=== PATIENT | male | born 1970 | race Caucasian/White ===

== ENCOUNTER 2024-09-03 09:27 | Inpatient (IN) | payer OTHER ==
[~2024-09-03] VITALS: Ht 193 cm; Wt 97.0 kg
[2024-09-03] VITALS (18 sets, daily range): BP systolic 123–152; BP diastolic 77–93
[~2024-09-03 09:27] MED LIST: GLIPIZIDE XL10 MG PO; GLIPIZIDE5 M2 PO; METFORMIN HCL1000 MG PO; METFORMIN500 M2 PO
--- NOTE | 2024-09-03 09:28 | NUR ---
PT COMPLAINT OF NON HEALING WOUND TO THE R FOOT FOR SEVERAL YEARS, SENT BY HIS WOUND DOCTOR FOR SURGERY CONSULT.
[2024-09-03] MEDS ORDERED: PIPERACILLIN Sodium-Tazobactam 3.375 GM in SODIUM CHLORIDE 0.9% 100 ML IV STA (10:07)
[2024-09-03] MEDS ORDERED: VANCOMYCIN HCL 1 GM in SODIUM CHLORIDE 0.9% 250 ML IV STA (10:07)
[2024-09-03] MEDS ORDERED: SODIUM CHLORIDE 0.9% 1,000 ML IV ONE (10:10)
--- NOTE | 2024-09-03 10:30 | NUR ---
REPORT RECEIVED FROM VIPIN.
[2024-09-03 10:32] LABS: BASO% 0.6 % (0-3); EOS% 3.2 % (0-8); HEMATOCRIT 36.4 % (39.0-50.0); HEMOGLOBIN 11.6 g/dl (14.0-18.0); IMMATURE GRANULOCYTES 0.8 % (0.0-5.0); LYMPH% 30.7 % (15-41); MEAN CELL VOLUME 95.8 fL CALC (80.0-100.0); MEAN CORPUSCULAR HGB 30.5 pG CALC (26.0-32.0); MEAN CORPUSCULAR HGB CONC 31.9 g/dL CAL (32.0-36.0); NEUT# 2.68 thou/uL (1.82-7.42); NEUT% 56.7 % (42-76); RED BLOOD COUNT 3.8 mill/uL (4.70-6.10); RED CELL DISTRI WIDTH 15.3 % (11.5-15.5)
--- NOTE | 2024-09-03 10:53 | NUR ---
FOLLOWED UP WITH LAB TO ENSURE CULTURES COLLECTED.
[2024-09-03 10:57] LABS: ALBUMIN 3.1 g/dL (3.2-5.0); BILIRUBIN, TOTAL 1.2 mg/dL (0.2-1.3); CREATININE 0.5 mg/dL (0.7-1.3); POTASSIUM 4.3 mmol/l (3.5-5.1); TOTAL PROTEIN 6.6 g/dL (6.3-8.2)
--- NOTE | 2024-09-03 12:01 | NUR ---
PATIENT LYING IN BED WITH NO ACUTE DISTRESS NOTED AT THIS TIME.
[2024-09-03] MEDS ORDERED: MAGNESIUM HYDROXIDE 30 ML UDC PO PRN (12:20)
[2024-09-03] MEDS ORDERED: DEXTROSE 250 ML IV PRN ×2 (12:20→12:25)
[2024-09-03] MEDS ORDERED: ACETAMINOPHEN 325 MG/TAB PO PRN (12:20)
--- NOTE | 2024-09-03 12:47 | NUR ---
REPORT GIVEN TO STEVE FALL.
--- NOTE | 2024-09-03 13:00 | NUR ---
PT ARRIVED TO THE UNIT VIA WC FROM ER, PT IS A&O X3, PT AMBULATED FROM THE WC TO THE BED SIDE SCALE THEN TO THE BED WITH A SLOW STEADY GAIT, PUPILS PERRL, NORMAL S1 S2 HEART SOUNDS, ABD DISTENDED AND SOFT WITH ACTIVE BOWEL SOUNDS, STRONG RADIAL PULSES, WEAK PEDAL PULSES, 20G RFA IV WITH ABX INFUSING AT PRESCRIBED RATE, PT ORIENTED TO THE ROOM AND CALL CADE SYSTEM, SAFETY MEASURES INTRODUCED, CALL CADE WITHIN REACH
--- NOTE | 2024-09-03 13:06 | NUR ---
PATIENT TAKEN TO [facility] VIA WHEELCHAIR.
[2024-09-03] MEDS ORDERED: LOSARTAN Potassium 25 MG/TAB PO SCH (14:30)
--- NOTE | 2024-09-03 16:00 | NUR ---
PT LAYING IN BED RESTING WITH EYES CLOSED, AROUSES EASILY TO VERBAL STIMULI, PT DENIES ANY NEEDS AT THIS TIME, CALL CADE WITHIN REACH
[2024-09-03] MEDS ORDERED: INSULIN LISPRO 100 UNITS/ML ML SC SCH ×2 (17:00)
[2024-09-03] MEDS ORDERED: VANCOMYCIN HCL 1 GM in SODIUM CHLORIDE 0.9% 250 ML IV SCH (18:00)
[2024-09-03] MEDS ORDERED: PIPERACILLIN Sodium-Tazobactam 3.375 GM in SODIUM CHLORIDE 0.9% 100 ML IV SCH (18:00)
[2024-09-03] MEDS ORDERED: ENOXAPARIN SODIUM 40 MG/0.4 ML SYR SC SCH (21:00)
[2024-09-03] MEDS ORDERED: SODIUM CHLORIDE 0.9% 1,000 ML IV PRN (22:00)
[2024-09-04 03:32] VITALS: BP 138/80
[2024-09-04 05:20] LABS: BASO% 0.6 % (0-3); EOS% 6.1 % (0-8); HEMATOCRIT 34.3 % (39.0-50.0); HEMOGLOBIN 10.9 g/dl (14.0-18.0); LYMPH% 28.8 % (15-41); MEAN CELL VOLUME 95.5 fL CALC (80.0-100.0); MEAN CORPUSCULAR HGB 30.4 pG CALC (26.0-32.0); MEAN CORPUSCULAR HGB CONC 31.8 g/dL CAL (32.0-36.0); NEUT# 1.8 thou/uL (1.82-7.42); NEUT% 54.5 % (42-76); RED BLOOD COUNT 3.59 mill/uL (4.70-6.10); RED CELL DISTRI WIDTH 15.5 % (11.5-15.5)
[2024-09-04 05:39] LABS: ALBUMIN 2.8 g/dL (3.2-5.0); BILIRUBIN, TOTAL 1.3 mg/dL (0.2-1.3); CREATININE 0.7 mg/dL (0.7-1.3); POTASSIUM 4.5 mmol/l (3.5-5.1); TOTAL PROTEIN 6.1 g/dL (6.3-8.2)
[2024-09-04 05:40] LABS: CHOLESTEROL HDL RATIO 3.2 (<4.4 (CALC)); MAGNESIUM 1.6 mg/dL (1.6-2.3)
--- NOTE | 2024-09-04 07:00 | NUR ---
PT TO OR VIA STRETCHER
[2024-09-04] MEDS ORDERED: SODIUM CHLORIDE 0.9% 1,000 ML IV ONE (07:06)
[2024-09-04] MEDS ORDERED: LIDOCAINE HCL 2% 2ML SDV IV ONE (07:19)
[2024-09-04] MEDS ORDERED: PROPOFOL 200 MG/20 ML VIAL IV ONE (07:19)
[2024-09-04] MEDS ORDERED: FAMOTIDINE 10MG/ML 2ML SDV IV ONE (07:25)
[2024-09-04] MEDS ORDERED: METOCLOPRAMIDE HCL 10 MG/2 ML SDV ONE (07:25)
[2024-09-04] MEDS ORDERED: HYDROmorphone HCL 2 MG/AMP IV PRN (08:30)
[2024-09-04] MEDS ORDERED: oxyCODONE 5MG/ ACETAMINOPHEN 325MG TAB PO PRN (08:30)
[2024-09-04] MEDS ORDERED: KETOROLAC TROMETHAMINE 30 MG/ML SDV ONE (08:38)
[2024-09-04] MEDS ORDERED: ACETAMINOPHEN 100 ML IV ONE (08:38)
[2024-09-04] MEDS ORDERED: HYDROmorphone HCL 2 MG/AMP IV ONE (08:38)
[2024-09-04] MEDS ORDERED: STERILE WATER FOR IRRIGATION 1,000 ML BTL IR ONE (09:12)
[2024-09-04] MEDS ORDERED: SODIUM CHLORIDE 3,000 ML BAG FOR IRRIGATION IR ONE (09:12)
--- NOTE | 2024-09-04 09:20 | NUR ---
PT RETURNED TO THE UNIT FROM OR VIA STRETCHER, PT ASSISTED WITH TRANSFERRING FROM STRETCHER TO THE BED
--- NOTE | 2024-09-04 09:25 | NUR ---
PT LAYING IN THE BED WATCHING TV, PT IS A&O X 3, PUPILS PERRL, NORMAL S1 S2 HEART SOUNDS, RESP. EVEN AND UNLABORED, LUNG SOUNDS ARE CLEAR, ABD DISTENDED AND SOFT WITH ACTIVE BOWEL SOUNDS, 20G RFA IV SL, STRONG RADIAL AND PEDAL PULSES, WOUND VAC IN PLACE ON R FOOT, SAFETY MEASURES REINFORCED, CALL CADE WITHIN REACH
--- NOTE | 2024-09-04 10:31 | NUR ---
S: SHANTEL ZHAO is a 53 M who presents with diabetic infection of right foot. He has a history of diabetes, BPH, neuropathy diabetic foot ulcer. All medications in patient's chart were reviewed. O: VS: BP 120/72, P 79, RR 12,T 97.5 W 97 kg, HT 76 in, Scr= 0.7,CrCl= 149.8 ml/min Trough on 09/04/2024 at 0930: 10 A: Blood culture shows no growth in 24 hours. Right foot culture is pending. P: Patient is on Zosyn 3.375 gm IV Q6H and vancomycin 1 gm IV Q8H. Vancomycin ordered for pharmacy to dose. Continue vancomycin 1 gm IV Q8H. Vancomycin trough is drawn before the 4th dose on 09/05/2024 at 0930. Vancomycin goal trough is between 10-15 mcg/ml. Pharmacy will follow and or advise on antibiotics use as needed.
[2024-09-04 10:52] VITALS: BP 117/69
[2024-09-04] MEDS ORDERED: KETOROLAC TROMETHAMINE 15 MG/ML SDV IV SCH (12:00)
--- NOTE | 2024-09-04 12:10 | NUR ---
PT SITTING UP IN BED WATCHING TV AND EATING LUNCH, PT VERBALIZES NO NEEDS AT THIS TIME, PT REMINDED TO CALL FOR ASSISTANCE, PT VERBALIZES UNDERSTANDING, CALL CADE WITHIN REACH
--- NOTE | 2024-09-04 15:45 | NUR ---
PHYSICAL THERAPY AT BEDSIDE FOR EVALUATION
--- NOTE | 2024-09-04 16:00 | NUR ---
PT RESTING WITH EYES CLOSED, RESP. EVEN AND UNLABORED, NO S/S OF DISTRESS AT THIS TIME, CALL CADE WITHIN REACH
[2024-09-04 17:05] VITALS: BP 126/75
[2024-09-04 18:50] VITALS: BP 113/71
--- NOTE | 2024-09-04 20:00 | NUR ---
RECEIVED REPORT FROM NURSE DANIELE CORTES ALERT6 ORIENTED, ONGOING VANCO INFUSING WELL ON RFA, C/O OF PAIN ON RT HEEL PS 04/17 WILL MEDICATE. WOUNDVAC ON RT HEEL, SUCTION AT 125, PATIENT NOT IN DSITRESS, CALL LIGT WITHING REACHED.
[2024-09-05] VITALS (7 sets, daily range): BP systolic 132–140; BP diastolic 75–83
--- NOTE | 2024-09-05 | NUR ---
PATIENT RESTING WITH EYES CLOSED, ONGOING ZOSN , CALLM LIGHT IN REACHED.
--- NOTE | 2024-09-05 03:58 | NUR ---
PATIENT RSETING WITH EYES CLOSED, BREATHING EVEN UNLABORED CALL LIGHT WITHIN REACHED.
[2024-09-05 05:33] LABS: BASO% 0.9 % (0-3); HEMATOCRIT 31.8 % (39.0-50.0); HEMOGLOBIN 10.3 g/dl (14.0-18.0); MEAN CELL VOLUME 96.1 fL CALC (80.0-100.0); MEAN CORPUSCULAR HGB 31.1 pG CALC (26.0-32.0); MEAN CORPUSCULAR HGB CONC 32.4 g/dL CAL (32.0-36.0); MONO% 10.6 % (2-13); NEUT# 1.62 thou/uL (1.82-7.42); NEUT% 50.5 % (42-76); RED BLOOD COUNT 3.31 mill/uL (4.70-6.10); RED CELL DISTRI WIDTH 15.5 % (11.5-15.5)
[2024-09-05 05:43] LABS: ALBUMIN 2.7 g/dL (3.2-5.0); BILIRUBIN, TOTAL 0.9 mg/dL (0.2-1.3); CREATININE 0.9 mg/dL (0.7-1.3); MAGNESIUM 1.7 mg/dL (1.6-2.3); POTASSIUM 4.7 mmol/l (3.5-5.1); TOTAL PROTEIN 5.9 g/dL (6.3-8.2)
--- NOTE | 2024-09-05 07:20 | NUR ---
PT LAYING IN BED RESTING WITH EYES CLOSED, AROUSES EASILY TO VERBAL STIMULI, PT IS A&O X3, PUPILS PERRL, NORMAL S1 S2 HEART SOUNDS, RESP. EVEN AND UNLABORED, LUNG SOUNDS ARE CLEAR, ABD DISTENDED AND SOFT WITH ACTIVE BOWEL SOUNDS, STRONG RADIAL PULSES, WEAK PEDAL PULSES, WOUND VAC IN PLACE, 20G LAC SL, SAFETY MEASURES REINFORCED, CALL CADE WITHIN REACH
--- NOTE | 2024-09-05 11:05 | NUR ---
S: SHANTEL ZHAO is a 53 M who presents with RIGHT FOOD NONHEALING DIABETIC ULCER. He has a history of DIABETES, DIABETIC NEUROPATHY, AND BPH. All medications in patient's chart were reviewed. O: VS: BP 139/83, P 79, RR 18,T 97.5 W 97kg, HT 76IN, Scr= 0.9,CrCl= 122ml/min TROUGH=15 A: WOUND CULTURE IS PENDING AND BLOOD CULTURE IS PENDING P: Patient is on zosyn 3.375gm iv q6h and VANCOMYCIN 1GM IV Q8H Vancomycin ordered for pharmacy to dose. decrease Vancomycin to 750mg IV Q8H due to increasing trough levels and increasing scr. Vancomycin trough is drawn before the 4th dose on 09/06/24 @1100. Vancomycin goal trough is between 10-15 mcg/ml. Pharmacy will follow and or advise on antibiotics use as needed.
[2024-09-05] MEDS ORDERED: VANCOMYCIN HCL 750 MG in SODIUM CHLORIDE 0.9% 235 ML IV SCH (11:30)
--- NOTE | 2024-09-05 16:00 | NUR ---
PT LAYING IN BED WATCHING TV, PT ASSISTED WITH REPOSITIONING FOR COMFORT, NO OTHER NEEDS AT THIS TIME, CALL CADE WITHIN REACH
--- NOTE | 2024-09-05 20:00 | NUR ---
RECEIVED REPORT FROM NURSE KAYLEIGH, PATIENT RESTING IN BED, IV NOTED ON RFA PATENT FSUSHES WELL, NOT IN DISTRESS, C/O PAIN ON RT HEEL PS 6/ WILL MEDICATE, RT HEEL HAS WOUNDVAC ON 125SUCTION, CALL LIGHT WITHIN REACHED.
[2024-09-06] VITALS (7 sets, daily range): BP systolic 131–154; BP diastolic 81–90
--- NOTE | 2024-09-06 00:35 | NUR ---
ONGOING ZOSYN INFUSING WELL, PATIENT BREATHING EVEN UNALBORED CALL LIGHT WITHIN REACHED.
--- NOTE | 2024-09-06 04:00 | NUR ---
ONGOING VANCO IV, C/O PAIN ON RT HEEL PS 7/10 PRN IV DILAUDID GIVEN.
[2024-09-06 05:19] LABS: BASO% 0.4 % (0-3); EOS% 4.5 % (0-8); HEMATOCRIT 36.7 % (39.0-50.0); HEMOGLOBIN 11.4 g/dl (14.0-18.0); IMMATURE GRANULOCYTES 0.2 % (0.0-5.0); LYMPH% 32.7 % (15-41); MEAN CELL VOLUME 99.2 fL CALC (80.0-100.0); MEAN CORPUSCULAR HGB 30.8 pG CALC (26.0-32.0); MEAN CORPUSCULAR HGB CONC 31.1 g/dL CAL (32.0-36.0); MONO% 10.8 % (2-13); NEUT# 2.42 thou/uL (1.82-7.42); NEUT% 51.4 % (42-76); RED BLOOD COUNT 3.7 mill/uL (4.70-6.10); RED CELL DISTRI WIDTH 15.3 % (11.5-15.5)
[2024-09-06 05:28] LABS: CREATININE 0.8 mg/dL (0.7-1.3)
--- NOTE | 2024-09-06 06:28 | NUR ---
RT FOOT ELEVATED ON A PILLOW, WOUNDVAC SUCTION REMAINS AT 125, CALL LIGHT IN REACHDED.
--- NOTE | 2024-09-06 07:56 | NUR ---
PATIENT LYING IN BED WITH EYES CLOSED. BREATHING UNLABORED ON ROOM AIR. IN RFA SL;SITE CLEAN AND INTACT. NO SIGNS OF PAIN OR DISTRESS NOTED. BED IN LOWEST POSITION. CALL LIGHT AND PERSONAL ITEMS WITHIN REACH. NO NEEDS AT THIS TIME. POC ONGOING.
--- NOTE | 2024-09-06 11:46 | NUR ---
PT ON ZOOM CALL WITH INFECTION DOCTOR .
--- NOTE | 2024-09-06 11:51 | NUR ---
S: SHANTEL ZHAO is a 53 M who presents with diabetic infection of right foot. He has a history of diabetes, BPH, neuropathy diabetic foot ulcer. All medications in patient's chart were reviewed. O: VS: BP 154/84, P 87, RR 18,T 98.0 W 97 kg, HT 76 in, Scr= 0.8, CrCl= 131 ml/min Trough on 09/06/2024 at 1100: 12 A: Blood culture shows no growth in 48 hours. Wound culture shows normal skin savannah, no bacteria seen. P: Patient is on vancomycin 750 mg IV Q8H and Zosyn 3.375 mg IV Q6H. Vancomycin ordered for pharmacy to dose. Continue Vancomycin 750 mg IV Q8H. Vancomycin trough is drawn before the dose on 09/08/2024 at 1100. Vancomycin goal trough is between 10-15 mcg/ml. Pharmacy will follow and or advise on antibiotics use as needed.
--- NOTE | 2024-09-06 12:12 | NUR ---
PATIENT SITTING UP IN BED WATCHING TV. BREATHING UNLABORED ON ROOM AIR. IV IN RFA SL;SITE CLEAN AND INTACT. WOUND VAC IN PLACE WITH SUCTION AT 125. CHANGED DRESSING. PT STATES TO HAVE PAIN;MEDICATION REVIEWED. BED IN LOWEST POSITION. CALL LIGHT WITHIN REACH. POC ONGOING.
--- NOTE | 2024-09-06 16:36 | NUR ---
PATIENT SITTING UP IN BED. BREATHING UNLABORED ON ROOM AIR. IV IN RFA INFUSING FLUIDS PER EMAR;SITE CLEAN AND INTACT. NO C/O OF PAIN AT THIS TIME. PERSONAL ITEMS AND CALL LIGHT WITHIN REACH. POC ONGOING.
[2024-09-06] MEDS ORDERED: SODIUM CHLORIDE 0.9% 250 ML IV ONE (19:27)
--- NOTE | 2024-09-06 19:45 | NUR ---
PT RESTING NO DISTRESS NOTED ON EXAM. VS WNL ON RA LUNGS CLEAR. AT THIS TIME PT DOES NOT REPORT ANY PAIN. PT HAS A WOUND VAC TO RIGHT FOOT WORKING PROPERLY SCANT AMOUNT OF SEROSANGUINEOUS FLUID NOTED DRESSING INTACT. PT HAS IV FLUID INFUSION ONGOING WORKING PROPERLY. CALL LIGHT WITHIN REACH. PLAN OF CARE ONGOING.
--- NOTE | 2024-09-06 21:15 | NUR ---
PT WAS GIVEN PAIN MEDICATION. URINE ELENI CLEAR IN COLOR.
--- NOTE | 2024-09-07 00:08 | NUR ---
PT RESTING REPORTING PAIN 8/10 ON RIGHT HEEL NURSE PROVIDED PAIN MEDICATION AND GAVE IV ABX. CALL LIGHT WITHIN REACH. PLAN OF CARE ONGOING.
--- NOTE | 2024-09-07 04:15 | NUR ---
PT REPORTING PAIN 8/10 ON RIGHT FOOT. NURSE PROVIDED PAIN MEDICATION IV AND GAVE ABX IV. WOUND VAC WORKING PROPERLY. CALL LIGHT WITHIN REACH. PLAN OF CARE ONGOING.
[2024-09-07 04:41] VITALS: BP 157/85
[2024-09-07 05:50] LABS: BASO% 0.3 % (0-3); EOS% 3.6 % (0-8); HEMATOCRIT 33.9 % (39.0-50.0); HEMOGLOBIN 10.9 g/dl (14.0-18.0); IMMATURE GRANULOCYTES 0.3 % (0.0-5.0); LYMPH% 38.5 % (15-41); MEAN CELL VOLUME 96.3 fL CALC (80.0-100.0); MEAN CORPUSCULAR HGB CONC 32.2 g/dL CAL (32.0-36.0); MONO% 10.5 % (2-13); NEUT# 1.84 thou/uL (1.82-7.42); NEUT% 46.8 % (42-76); RED BLOOD COUNT 3.52 mill/uL (4.70-6.10)
[2024-09-07 05:52] LABS: CREATININE 0.6 mg/dL (0.7-1.3); POTASSIUM 4.9 mmol/l (3.5-5.1)
--- NOTE | 2024-09-07 07:05 | NUR ---
REPORT RECEIVED FROM MAGUIRN
[2024-09-07 07:51] VITALS: BP 161/91
--- NOTE | 2024-09-07 08:40 | NUR ---
PT RESTING IN SEMI FOWLERS POSITION,A&O X3;PT REPORTS RIGHT HEEL PAIN RATING 7/10 ON THE PAIN SCALE AND IS MEDICATED WITH PRN DILAUDID 1MG SLOW IVP;ASSESSMENT COMPLETED;RESPIRATIONS EVEN AND UNLABORED ON RA,CLEAR LUNG SOUNDS;ABDOMEN SOFT ON PALPATION AND ACTIVE IN ALL 4 QUADRANTS;STRONG PEDAL PULSES;WOUND VAC NOTED TO RIGHT HEEL RUNNING AT 125MM/HG-SMALL AMOUNT OF SEROSANGUINEOUS DRAINAGE NOTED IN VAC;#20G TO RFA FLUSHED AND PATENT,SITE APPEARS HEALTHY;ACCUCHECK 182, PT COVERED WITH SLIDING SCALE INSULIN PER ORDER;PT DENIES ANY ADDITIONAL NEEDS AND IS ENCOURAGED TO CALL FOR ASSISTANCE IF NEEDED;FALL PRECAUTIONS REMAIN IN PLACE WITH BED IN THE LOWEST POSITION AND CALL LIGHT IN REACH;FREQUENT ROUNDS MADE.
--- NOTE | 2024-09-07 11:50 | NUR ---
PT RESTING IN SEMI FOWLERS POSITION WATCHING TV;RESPIRATIONS EVEN AND UNLABORED ON RA;PT REPORTS RIGHT HEEL PAIN RATING 6/10 ON THE PAIN SCALE AND IS MEDICATED WITH PRN DILAUDID 1MG SLOW IVP AT THIS TIME;#20G TO RFA FLUSHED AND PATENT,ABX STARTED PER ORDER;WOUND VAC TO RIGHT HEEL REMAINS PATENT;ACCUCHECK 198, COVERED WITH SLIDING SCALE INSULIN PER ORDER;ENCOURAGED TO CALL FOR ASSISTANCE IF NEEDED;CALL LIGHT IN REACH;FREQUENT ROUNDS MADE.
--- NOTE | 2024-09-07 13:40 | NUR ---
PT MEDICATED WITH PRN PERCOCET 5/325MG PO FOR RIGHT HEEL PAIN RATING 6/10 ON THE PAIN SCALE, FREQUENT ROUNDS MADE
--- NOTE | 2024-09-07 15:00 | NUR ---
PT RESTING IN SEMI FOWLERS POSITION WATCHING TV;RESPIRATIONS EVEN AND UNLABORED ON RA;WOUND VAC TO RIGHT HEEL REMAINS CDI RUNNING AT 125;RIGHT FOOT ELEVATED ON THE BED;#20G TO RFA REMAINS INTACT;ENSURE PROVIDED PER REQUEST;PT DENIES ANY ADDITIONAL NEEDS;CALL LIGHT IN REACH;FREQUENT ROUNDS MADE
--- NOTE | 2024-09-07 16:30 | NUR ---
PT MEDICATED WITH PRN DILAUDID 1MG SLOW IVP FOR RIGHT HEEL PAIN, FREQUENT ROUNDS TO BE MADE.
[2024-09-07 16:54] VITALS: BP 138/43
[2024-09-07 19:11] VITALS: BP 131/89
--- NOTE | 2024-09-07 20:00 | NUR ---
PT RESTING IN BED NO DISTRESS NOTED. VS WNL ON RA LUNGS CLEAR. PT REPORTS PAIN ON RIGHT FOOT 04/17 IV PAIN MEDICATION GIVE. IV WORKING PROPERLY. RIGHT FOOT WOUND VAC CONNECTED WORKING PROPERLY NO LEAKS. PT HAS NOTHER SKIN ISSUES OR EDEMA AT THIS TIME. PT REPORTS HAVING A NORMAL BM TODAY. CALL LIGHT WITHIN REACH. PLAN OF CARE ONGOING.
[2024-09-08 03:51] VITALS: BP 122/71
--- NOTE | 2024-09-08 04:13 | NUR ---
PT RESTING NO DISTRESS NOTED ON EXAM. PT REPORTING PAIN 7/10 WILL GIVE PAIN MEDICATION. WOUND VAC WORKING PROPERLY. IV ABX GIVEN. CALL LIGHT WITHIN REACH. PLAN OF CARE ONGOING.
[2024-09-08 05:27] LABS: BASO% 0.5 % (0-3); EOS% 4.3 % (0-8); HEMATOCRIT 32.5 % (39.0-50.0); HEMOGLOBIN 10.2 g/dl (14.0-18.0); IMMATURE GRANULOCYTES 0.3 % (0.0-5.0); LYMPH% 37.8 % (15-41); MEAN CELL VOLUME 95.3 fL CALC (80.0-100.0); MEAN CORPUSCULAR HGB 29.9 pG CALC (26.0-32.0); MEAN CORPUSCULAR HGB CONC 31.4 g/dL CAL (32.0-36.0); NEUT# 1.81 thou/uL (1.82-7.42); NEUT% 46.1 % (42-76); RED BLOOD COUNT 3.41 mill/uL (4.70-6.10); RED CELL DISTRI WIDTH 15.2 % (11.5-15.5)
[2024-09-08 05:34] LABS: CREATININE 0.6 mg/dL (0.7-1.3); POTASSIUM 4.7 mmol/l (3.5-5.1)
[2024-09-08 07:11] VITALS: BP 133/79
--- NOTE | 2024-09-08 07:53 | NUR ---
SHIFT CHANGE REPORT, PT AWAKE ALERT AND ORIENTED RESTING IN BED, C/O RIGHT FOOT PAIN @ 8/10, WOUND VAC IN PLACE TO RIGHT HEEL WITH SEROSANGUINOUS DRAINAGE, PAIN CONCERN ADDRESSED, CALL CADE IN REACH AND BED LOCKED IN LOWEST POSITION.
--- NOTE | 2024-09-08 12:00 | NUR ---
PAIN CONCERN ADDRESSED, NO OTHER COMPLAINS.
[2024-09-08 15:45] VITALS: BP 132/76
[2024-09-08 18:28] VITALS: BP 152/80
--- NOTE | 2024-09-08 19:47 | NUR ---
PATIENT OBSERVED RESTING IN BED. ALERT AND ABLE TO MAKE NEEDS KNOWN. ASSESSMENT COMPLETE. NO DISTRESS NOTED. COMPLAINTS OF PAIN TO RIGHT FOOT/HEEL AREA. PRN PAIN MEDICATION GIVEN PER ORDERS. PATIENT TOLERATED WELL. WOUNDVAC TO RIGHT HEEL AREA PATENT RUNNING AT 125MMHG. PATIENT DENIES NEEDING ANYTHING ELSE AT THIS TIME. BED IN LOW POSITION. CALL CADE IN REACH.
--- NOTE | 2024-09-08 23:13 | NUR ---
RECEIVED PRN PAIN MEDICATION PER REQUEST FOR PAIN TO RIGHT HEEL/FOOT. PATIENT TOLERATED WELL. DENIES NEEDING ANYTHING AT THIS TIME. BED IN LOW POSITION. CALL CADE IN REACH.
--- NOTE | 2024-09-09 03:30 | NUR ---
IV ABT HUNG PER SCHEDULE. WOUNDVAC REMAINS PATENT TO RIGHT HEEL/FOOT. BED REMAINS IN LOW POSITION. CALL CADE AND BELONGINGS IN REACH.
[2024-09-09 03:35] VITALS: BP 135/76
[2024-09-09 05:36] LABS: BASO% 0.5 % (0-3); EOS% 3.5 % (0-8); HEMATOCRIT 32.5 % (39.0-50.0); HEMOGLOBIN 10.5 g/dl (14.0-18.0); IMMATURE GRANULOCYTES 0.2 % (0.0-5.0); LYMPH% 41.6 % (15-41); MEAN CELL VOLUME 95.9 fL CALC (80.0-100.0); MEAN CORPUSCULAR HGB CONC 32.3 g/dL CAL (32.0-36.0); MONO% 11.1 % (2-13); NEUT# 1.87 thou/uL (1.82-7.42); NEUT% 43.1 % (42-76); RED BLOOD COUNT 3.39 mill/uL (4.70-6.10); RED CELL DISTRI WIDTH 15.2 % (11.5-15.5)
[2024-09-09 05:49] LABS: CREATININE 0.6 mg/dL (0.7-1.3); POTASSIUM 4.8 mmol/l (3.5-5.1)
[2024-09-09 06:43] VITALS: BP 125/78
[2024-09-09 07:12] VITALS: BP 125/78
--- NOTE | 2024-09-09 07:15 | NUR ---
BEDSIDE SHIFT REPORT RECEIVED. PT RESTING IN BED WITH MILS C/O PAIN / TO RIGHT HEEL WITH WOUND VAC IN PLACE AND INTACT. PT VOIDED 400ML CLEAR YELLOW URINE. CALL LIGHT IN REACH. WILL MONITOR. .
--- NOTE | 2024-09-09 09:45 | NUR ---
PT TO [facility] FOR PICC LINE PLACEMENT AFTER PT WORKED WITH PATIENT AND BED LINENS CHANGED.
--- NOTE | 2024-09-09 09:45 | NUR ---
S: SHANTEL ZHAO is a 53 M who presents with diabetic infection of right foot. He has a history of diabetes, BPH, neuropathy diabetic foot ulcer. All medications in patient's chart were reviewed. O: VS: BP 125/78 mmhg, P 83 bpm, RR 20 bpm,T 97.2 F W 97 kg, HT 76 in, Scr= 0.6 ,CrCl= 174.8 ml/min Trough on 09/08/2024 at 1100: 11 mcg/dl A: Blood culture show no growth in 48 hours. Wound culture shows no bacteria, normal skin savannah. P: Patient is on vancomycin 750 mg IV Q8H and Zosyn 3.375 gm IV Q6H. Vancomycin ordered for pharmacy to dose. Continue vancomycin 750 mg IV Q8H. Vancomycin trough is drawn before the dose on 09/11/2024 at 1100. Vancomycin goal trough is between 10-15 mcg/ml. Pharmacy will follow and or advise on antibiotics use as needed.
--- NOTE | 2024-09-09 10:06 | NUR ---
S: SHANTEL ZHAO is a 53 M who presents with diabetic foot ulcer for right foot. He has a history of diabetes, BPH, neuropathy diabetic foot ulcer . All medications in patient's chart were reviewed. O: VS: BP 125/78 mmHg, P 83 bpm, RR bpm ,T 97.2 F W 97 kg, HT 76 in, Scr= 0.6,CrCl= 174.8 ml/min Trough on 09/08/2024 at 1105: 11 mcg/mL A: Blood culture mo growth in 48 hours. Wound culture show no bacteria, normal skin savannah. P: Patient is on vancomycin 750 mg IV Q8H and Zosyn 3.375 mg IV Q6H. Vancomycin ordered for pharmacy to dose. Continue Vancomycin 750 mg IV Q8H. Vancomycin trough is drawn before the dose on 09/11/2024 at 1100. Vancomycin goal trough is between 10-15 mcg/ml. Pharmacy will follow and or advise on antibiotics use as needed.
--- NOTE | 2024-09-09 10:19 | NUR ---
PT RETURNED WITH PICC LINE PLACED RIGHT UPPER ARM SINGLE LUMEN POWER PICC. PT RASHAD WELL. PRINTED BOOKLET AND CARD GIVEN TO PT. CALL LIGHT IN REACH.
[2024-09-09] MEDS ORDERED: SODIUM CHLORIDE 0.9% 0 ML IV ONE (10:24)
[2024-09-09] MEDS ORDERED: glipiZIDE 2.5 MG EXTENDED RELEASE TAB PO SCH (10:30)
[2024-09-09] MEDS ORDERED: metFORMIN HYDROCHLORIDE 500 MG/TAB PO SCH (10:30)
--- NOTE | 2024-09-09 15:05 | NUR ---
DR. GILL AT BEDSIDE INSPECTING WOUND. WOUND VAC THEN CHANGED TO RIGHT HEEL. FULL THICKNESS WOUND NOTED WITH BEEFY RED WOUND BED. PT RASHAD DRESSING CHANGE WELL. PT WAS PRE-MEDICATED WITH PERCOCET 1 TAB BY MOUTH ORDERED. WILL CONTINUE TO MONITOR.
[2024-09-09 15:13] VITALS: BP 132/72
[2024-09-09 15:38] VITALS: BP 132/72
--- NOTE | 2024-09-09 17:40 | NUR ---
PT REMAINS TO REST IN BED WATCHING TV WITH PAIN MANAGED WITH DILAUDID AND PERCOCET. WOUND VAC REMAINS INTACT AND FUNCTIONING. WILL MONITOR.
[2024-09-09 18:32] VITALS: BP 125/68
--- NOTE | 2024-09-09 20:45 | NUR ---
PT RESTING NO DISTRESS NOTED ON ASSESSMENT. VS WNL ON RA LUNGS CLEAR REPORTING PAIN 6/10 ON RIGHT FOOT PAIN MEDICATION GIVEN. WOUND VAC WITH DRESSING IN PLACE INTACT WORKING PROPERLY. PICC LINE IN MAURA WITH ABX INFUSION ONGOING FLUSHED WORKING PROPERLY. CALL LIGHT WITHIN REACH. PLAN OF CARE ONGOING.
--- NOTE | 2024-09-09 23:35 | NUR ---
PT RESTING REPORTING RIGHT FOOT PAIN 7/10 IV PAIN MEDICATION GIVEN AND ABX GIVEN. CALL LIGHT WITHIN REACH. PLAN OF CARE ONGOING.
[2024-09-10 04:21] VITALS: BP 146/81
--- NOTE | 2024-09-10 05:36 | NUR ---
PT SLEEPING EASILY AROUSABLE NO DISTRESS NOTED ON EXAM. IV FLUSHED AND ABX GIVEN. CALL LIGHT WITHIN REACH. PLAN OF CARE ONGOING.
[2024-09-10 06:49] VITALS: BP 130/78
[2024-09-10 07:04] VITALS: BP 130/78
[2024-09-10 07:24] LABS: BASO% 0.8 % (0-3); EOS% 3.9 % (0-8); IMMATURE GRANULOCYTES 0.3 % (0.0-5.0); LYMPH% 38.8 % (15-41); MEAN CELL VOLUME 96.7 fL CALC (80.0-100.0); MEAN CORPUSCULAR HGB 30.2 pG CALC (26.0-32.0); MEAN CORPUSCULAR HGB CONC 31.3 g/dL CAL (32.0-36.0); MONO% 10.6 % (2-13); NEUT# 1.77 thou/uL (1.82-7.42); NEUT% 45.6 % (42-76); RED BLOOD COUNT 3.31 mill/uL (4.70-6.10); RED CELL DISTRI WIDTH 15.4 % (11.5-15.5)
[2024-09-10 07:42] LABS: CREATININE 0.6 mg/dL (0.7-1.3); POTASSIUM 4.6 mmol/l (3.5-5.1)
--- NOTE | 2024-09-10 08:00 | NUR ---
PT IS SITTING IN BED AWAKE, CALL CADE IN REACH.
[2024-09-10] MEDS ORDERED: YEAST (S. BOULARDII)(S. CEREVI 250 MG CAP PO SCH (10:00)
--- NOTE | 2024-09-10 12:14 | NUR ---
PT IS AWAKE SITTING IN BED, WITH CALL LIGHT IN REACH.
[2024-09-10 15:25] VITALS: BP 113/69
--- NOTE | 2024-09-10 16:00 | NUR ---
PT IS LAI CALVO BED, AWAKE. CALL LIGHT IN REACH.
[2024-09-10 16:07] VITALS: BP 113/69
[2024-09-10 19:16] VITALS: BP 114/67
--- NOTE | 2024-09-10 20:20 | NUR ---
PT RESTING IN BED NO DISTRESS NOTED. VS WNL ON RA LUNGS CLEAR REPORTING PAIN 5/10 ON RIGHT FOOT. WOUND VAC ON RIGHT FOOT WORKING PROPERLY NO LEAKS DRESSING INTACT AND CLEAN. PICC LINE FLUSHED WORKING PROPERLY SL. CALL LIGHT WITHIN REACH. PLAN OF CARE ONGOING.
[2024-09-11] VITALS (7 sets, daily range): BP systolic 125–150; BP diastolic 62–90
--- NOTE | 2024-09-11 00:15 | NUR ---
PT RESTING NO DISTRESS NOTED ON EXAM. CALL LIGHT WITHIN REACH. PLAN OF CARE ONGOING.
--- NOTE | 2024-09-11 03:28 | NUR ---
PT RESTING NO DISTRESS NOTED ON EXAM. PT REPORTING RIGHT FOOT PAIN 6/10. PAIN MEDICATION GIVEN. PICC LINE FLUSHED AND ABX GIVEN. CALL LIGHT WITHIN REACH. PLAN OF CARE ONGOING.
[2024-09-11 07:03] LABS: BASO% 0.3 % (0-3); EOS% 3.6 % (0-8); HEMATOCRIT 30.5 % (39.0-50.0); HEMOGLOBIN 9.7 g/dl (14.0-18.0); IMMATURE GRANULOCYTES 0.3 % (0.0-5.0); LYMPH% 37.3 % (15-41); MEAN CELL VOLUME 95.6 fL CALC (80.0-100.0); MEAN CORPUSCULAR HGB 30.4 pG CALC (26.0-32.0); MEAN CORPUSCULAR HGB CONC 31.8 g/dL CAL (32.0-36.0); MONO% 9.8 % (2-13); NEUT# 1.74 thou/uL (1.82-7.42); NEUT% 48.7 % (42-76); RED BLOOD COUNT 3.19 mill/uL (4.70-6.10); RED CELL DISTRI WIDTH 15.3 % (11.5-15.5)
[2024-09-11 07:06] LABS: CREATININE 0.6 mg/dL (0.7-1.3); POTASSIUM 4.3 mmol/l (3.5-5.1)
--- NOTE | 2024-09-11 07:30 | NUR ---
SHIFT CHANGE REPORT, PT AWAKE ALERT AND ORIENTED SITTING UP IN BED, WOUND VAC IN PLACE WITH BLOODY DRAINAGE, C/O RIGHT FOOT PAIN@ 03/18, ISSUE ADDRESSED, CALL CADE IN REACH AND BED LOCKED IN LOWEST POSITION.
[2024-09-11] MEDS ORDERED: oxyCODONE 5MG/ ACETAMINOPHEN 325MG TAB PO PRN (09:20)
--- NOTE | 2024-09-11 12:00 | NUR ---
NO CHANGE IN CONDITION, PAIN CONCERNS ADDRESSED.
--- NOTE | 2024-09-11 13:29 | NUR ---
S: SHANTEL ZHAO is a 53 M who presents with diabetic foot ulcer of right foot. Per Infectious Disease service, continue antibiotics x 6 weeks. O: VS: BP 150/90, P 92, RR 18,T 98.1 W 97 kg, HT 76 in, Scr= 0.6,CrCl= 125 ml/min A: Blood culture shows no growth. Wound culture shows normal skin savannah. P: Patient is on Vancomycin and Zosyn. Vancomycin ordered for pharmacy to dose. Per ID, patient to continue antibiotics x 6 weeks due to concern for osteomyelitis. Trough on 09/11 resulted at 11 mcg/ml. Increase Vancomycin to 1gm q8h. Vancomycin trough is drawn before the 4th dose on 09/12 1930. Vancomycin goal trough is between 15-20 mcg/ml. Pharmacy will follow and or advise on antibiotics use as needed.
--- NOTE | 2024-09-11 17:03 | NUR ---
WOUND VAC CHANGED PER ORDER, PT TOLERATED WITH MODERATE PAIN
[2024-09-11] MEDS ORDERED: VANCOMYCIN HCL 1 GM in SODIUM CHLORIDE 0.9% 250 ML IV SCH (20:00)
--- NOTE | 2024-09-11 20:20 | NUR ---
PT RESTING IN BED NO DISTRESS NOTED ON ASSESSMENT. VS WNL ON RA LUNGS CLEAR. WOUND VAC ON RIGHT FOOT WORKING PROPERLY DRESSING INTACT AND CLEAN. PICC LINE FLUSHED WORKING PROPERLY ABX GIVEN. CALL LIGHT WITHIN REACH. PLAN OF CARE ONGOING.
--- NOTE | 2024-09-12 00:30 | NUR ---
PT SLEEPING EASILY AROUSABLE NO DISTRESS NOTED ON EXAM. PICC LINE FLUSHED ABX GIVEN. CALL LIGHT WITHIN REACH. PLAN OF CARE ONGOING.
--- NOTE | 2024-09-12 03:50 | NUR ---
PT SLEEPING EASILY AROUSABLE NO DISTRESS NOTED. PICC LINE FLUSHED AND LABS DRAWN. CALL LIGHT WITHIN REACH. PLAN OF CARE ONGOING.
[2024-09-12 04:15] VITALS: BP 126/70
[2024-09-12 05:24] LABS: BASO% 0.5 % (0-3); EOS% 4.2 % (0-8); HEMATOCRIT 31.5 % (39.0-50.0); HEMOGLOBIN 10.2 g/dl (14.0-18.0); IMMATURE GRANULOCYTES 0.3 % (0.0-5.0); MEAN CELL VOLUME 94.9 fL CALC (80.0-100.0); MEAN CORPUSCULAR HGB 30.7 pG CALC (26.0-32.0); MEAN CORPUSCULAR HGB CONC 32.4 g/dL CAL (32.0-36.0); MONO% 10.3 % (2-13); NEUT# 1.8 thou/uL (1.82-7.42); NEUT% 47.7 % (42-76); RED BLOOD COUNT 3.32 mill/uL (4.70-6.10); RED CELL DISTRI WIDTH 15.5 % (11.5-15.5)
[2024-09-12 05:39] LABS: CREATININE 0.6 mg/dL (0.7-1.3); POTASSIUM 4.2 mmol/l (3.5-5.1)
[2024-09-12 06:50] VITALS: BP 136/59
[2024-09-12 07:11] VITALS: BP 136/59
--- NOTE | 2024-09-12 07:20 | NUR ---
PATIENT A&OX3. BREATHING UNLABORED ON ROOM AIR. MAURA PICC SL;SITE CLEAN AND INTACT. PT DENIES ANY PAIN OR N/D/V AT THIS TIME. PERSONAL ITEMS WITHIN REACH WELL CALL LIGHT;EDUCATED PT ON USE. BED IN LOWEST POSITION. POC ONGOING.
--- NOTE | 2024-09-12 12:29 | NUR ---
PATIENT LYING IN BED AWAKE WATCHING TV. BREATHING UNLABORED ON ROOM AIR. MAURA PICC INFUSING FLUIDS PER EMAR;SITE CLEAN AND INTACT. PATIENT DENIES ANY PAIN OR N/D/V AT THIS TIME. PERSONAL ITEMS WELL CALL LIGHT WITHIN REACH. NO NEEDS AT THIS TIME. POC ONGOING.
[2024-09-12 15:41] VITALS: BP 115/62
[2024-09-12 16:15] VITALS: BP 115/62
--- NOTE | 2024-09-12 16:19 | NUR ---
PATIENT LYING IN BED WITH EYES CLOSED. BREATHING UNLABORED ON ROOM AIR. IV SL. NO SIGNS OF DISTRESS NOTED. PERSONAL ITEMS AND CALL LIGHT WITHIN REACH. NO NEEDS AT THIS TIME. POC ONGOING.
[2024-09-12 18:11] VITALS: BP 142/65
--- NOTE | 2024-09-12 21:00 | NUR ---
PT RESTING NO DISTRESS NOTED ON EXAM. PICC LINE FLUSHED WORKING PROPERLY. PAIN LEVEL 5/10 MEDICATION PROVIDED. VS WNL ON RA LUNGS CLEAR. WOUND VAC ON RIGHT FOOT NO LEAKS DRESSING INTACT AND CLEAN. CALL LIGHT WITHIN REACH. PLAN OF CARE ONGOING.
--- NOTE | 2024-09-13 00:30 | NUR ---
PT RESTING NO DISTRESS NOTED. PT ASKING FOR SNACKS. MULTIPLE SNACKS PROVIDED. CALL LIGHT WITHIN REACH. PLAN OF CARE ONGOING.
[2024-09-13 03:47] VITALS: BP 138/71
--- NOTE | 2024-09-13 04:30 | NUR ---
PT SITTING ON SIDE OF BED NO DISTRESS NOTED. CALL LIGHT WITHIN REACH. PLAN OF CARE ONGOING.
[2024-09-13 07:18] VITALS: BP 123/68
[2024-09-13 07:29] VITALS: BP 123/68
--- NOTE | 2024-09-13 07:41 | NUR ---
PATIENT LYING IN BED AWAKE;A&OX3. BREATHING UNLABORED ON ROOM AIR. MAURA PICC SL;SITE CLEAN AND INTACT. PT DENIES ANY PAIN OR N/D/V AT THIS TIME. PT DOES STATE TO WANT A STOOL SOFTENER WITH MORNING MEDS. NO OTHER NEEDS AT THIS TIME. BED IN LOWEST POSITION. CALL LIGHT WITHIN REACH WELL URINAL. POC ONGOING.
--- NOTE | 2024-09-13 09:44 | NUR ---
S: SHANTEL ZHAO is a 53 M who presents with right foot nonhealing diabetic ulcer. He has a history of diabetes, BPH, neuropathy diabetic foot ulcer. All medications in patient's chart were reviewed. O: VS: BP 123/68 mmHg, P 95 bpm, RR 19 bpm,T 97.4 F W 53 kg, HT 76 in, Scr = 0.6 mg/dL, CrCl = 174.8 ml/min Trough: 12 on 09/12/2024 at 1920 AUC: 413 A: Blood culture shows no growth in 48 hours. Wound culture shows normal savannah, no bacteria. Vancomycin trough below goal of 15-20, however AUC within goal range of 400-600. Will continue current dose and recheck trough in 2 days. P: Patient is on vancomycin 1 gm IV Q8H and Zosyn 3.375 gm IV Q6H Vancomycin ordered for pharmacy to dose. Continue vancomycin 1 gm IV Q8H. Vancomycin trough is drawn before the dose on 09/15/2024 at 0330. Vancomycin goal trough is between 15-20 mcg/mL. Pharmacy will follow and or advise on antibiotics use as needed.
--- NOTE | 2024-09-13 12:35 | NUR ---
PATIENT LYING IN BED WATCHING TV. BREATHING UNABORED ON ROOM AIR. MAURA PICC INFUSING FLUIDS PER EMAR;SITE CLEAN AND INTACT. PT DENIES ANY PAIN OR N/D/V AT THIS TIME. BED IN LOWEST POSITION. PERSONAL ITEMS AND CALL LIGHT WITHIN REACH. POC ONGOING.
[2024-09-13 14:48] VITALS: BP 155/58
[2024-09-13 14:57] VITALS: BP 155/58
--- NOTE | 2024-09-13 16:32 | NUR ---
PATIENT LYING IN BED WATCHING TV. BREATHING UNLABORED ON ROOM AIR. MAURA PICC SL;SITE CLEAN AND INTACT. PT DENIES ANY PAIN OR N/D/V AT THIS TIME. BED IN LOWEST POSITION. CALL LIGHT WITHIN REACH WELL PERSONAL ITEMS. NO OTHER NEEDS AT THIS TIME. POC ONGOING.
[2024-09-13 18:17] VITALS: BP 147/87
--- NOTE | 2024-09-13 20:15 | NUR ---
PT RESTING NO DISTRESS NOTED ON ASSESSMENT. VS WNL ON RA LUNGS CLEAR. PAIN 6/10 ON RIGHT FOOT PAIN MEDICATION GIVEN. DRESSING INTACT WITH WOUND VAC. MAURA PICC FLUSHED WORKING PROPERLY. CALL LIGHT WITHIN REACH. PLAN OF CARE ONGOING.
--- NOTE | 2024-09-14 00:15 | NUR ---
PT RESTING NO DISTRESS NOTED ON EXAM. PICC LINE FLUSHED WORKING PROPERLY ABX GIVEN. CALL LIGHT WITHIN REACH. PLAN OF CARE ONGOING.
[2024-09-14 04:27] VITALS: BP 129/81
--- NOTE | 2024-09-14 04:30 | NUR ---
PT SLEEPING EASILY AROUSABLE NO DISTRESS NOTED. PICC LINE FLUSHED ABX GIVEN. CALL LIGHT WITHIN REACH. PLAN OF CARE ONGOING.
[2024-09-14 07:35] VITALS: BP 133/75
--- NOTE | 2024-09-14 07:39 | NUR ---
PATIENT LYING IN BED WATCHING TV. BREATHING UNLABORED ON ROOM AIR. MAURA PICC SL ;SITE CLEAN AND INTACT. PT DENIES ANY PAIN OR N/D/V AT THIS TIME. ASSESSMENT COMPLETED. BED IN LOWEST POSITION. CALL LIGHT WITHIN REACH. NO OTHER NEEDS AT THIS TIME. POC ONGOING.
--- NOTE | 2024-09-14 12:40 | NUR ---
PATIENT SITTING UP IN BED WATCHING TV. MAURA PICC INFUSING FLUIDS PER EMAR;SITE CLEAN AND INTACT. PT STATED HE WOULD LIKE SOMETHING FOR PAIN;MEDICATION ADMINISTERED. DENIES ANY N/D/V AT THIS TIME. BED IN LOWEST POSITION.. CALL LIGHT WITHIN REACH. NO OTHER NEEDS AT THIS TIME. POC ONGOING.
--- NOTE | 2024-09-14 16:18 | NUR ---
PATIENT SITTING UP IN RECLINER WATCHING TV. PT HAS C/O OF CONSTIPATION;MEDICATION ADMINISTERED PER EMAR. NO OTHER NEEDS AT THIS TIME. PERSONALS AND CALL LIGHT WITHIN REACH. POC ONGOING.
[2024-09-14 16:34] VITALS: BP 136/82
[2024-09-14 18:46] VITALS: BP 111/66
[2024-09-15 04:24] VITALS: BP 132/78
[2024-09-15 07:17] VITALS: BP 132/68
--- NOTE | 2024-09-15 07:45 | NUR ---
PATIENT LYING IN BED WATCHING TV. BREATHING UNLABORED ON ROOM AIR. MAURA PICC SL;SITE CLEAN AND INTACT. PT DENIES ANY PAIN OR N/D/V AT THIS TIME. PERSONAL ITEMS WELL CALL LIGHT WITHIN REACH. WOUND VAC INTACT ON RIGHT FOOT WITH SUCTION AT 125. BED IN LOWEST POSITION. POC ONGOING.
[2024-09-15 11:05] VITALS: BP 136/82
--- NOTE | 2024-09-15 12:30 | NUR ---
S: SHANTEL ZHAO is a 53 M who presents with OSTEOMYELITIS All medications in patient's chart were reviewed. O: VS: BP 136/82, P 102, RR 17,T 97.3 W 97 kg, HT 76 IN, Scr= 0.6,CrCl= 183ml/min TROUGH=15 A: BLOOD CULTURE SHOWS NO GROWTH AND WOUND CULTURE SHOWS NORMAL SKIN YO P: Patient is on VANCOMYCIN 1GM IV Q8H AND ZOSYN 3.375GM IV Q6H Vancomycin ordered for pharmacy to dose. CONTINUE Vancomycin 1GM IV Q 8H. Vancomycin trough is drawn before the 4th dose on 09/16/24 @0330. Vancomycin goal trough is between 15-20 mcg/ml. Pharmacy will follow and or advise on antibiotics use as needed.
--- NOTE | 2024-09-15 12:39 | NUR ---
PATIENT LYING IN BED AFTER TAKING A SHOWER. MAURA PICC INFUSING FLUIDS PER EMAR;SITE CLEAN AND INTACT. BED IN LOWEST POSITION. CALL LIGHT AND PERSONAL ITEMS WITHIN REACH. WOUND VAC OPERATING FINE WITH 125 SUCTION. POC ONGOING.
[2024-09-15 15:43] VITALS: BP 130/78
--- NOTE | 2024-09-15 16:29 | NUR ---
PATIENT SITTING UP IN BED WATCHING TV. MAURA PICC SL;SITE CLEAN AND INTACT. PT DENIES ANY PAIN OR N/D/V AT THIS TIME. BED IN LOWEST POSITION. CALL LIGHT WITHIN REACH. POC ONGOING.
[2024-09-15 18:47] VITALS: BP 117/60
[2024-09-15] MEDS ORDERED: Polyethylene Glycol 3350 17 GM/PKT PO PRN (19:10)
[2024-09-16 03:48] LABS: BASO% 0.5 % (0-3); EOS% 3.6 % (0-8); HEMATOCRIT 30.6 % (39.0-50.0); HEMOGLOBIN 9.7 g/dl (14.0-18.0); LYMPH% 37.8 % (15-41); MEAN CELL VOLUME 93.9 fL CALC (80.0-100.0); MEAN CORPUSCULAR HGB 29.8 pG CALC (26.0-32.0); MEAN CORPUSCULAR HGB CONC 31.7 g/dL CAL (32.0-36.0); MONO% 10.9 % (2-13); NEUT# 1.82 thou/uL (1.82-7.42); NEUT% 47.2 % (42-76); RED BLOOD COUNT 3.26 mill/uL (4.70-6.10); RED CELL DISTRI WIDTH 14.9 % (11.5-15.5)
[2024-09-16 03:58] LABS: ALBUMIN 3.1 g/dL (3.2-5.0); BILIRUBIN, TOTAL 0.6 mg/dL (0.2-1.3); CREATININE 0.5 mg/dL (0.7-1.3); MAGNESIUM 1.7 mg/dL (1.6-2.3); POTASSIUM 4.2 mmol/l (3.5-5.1); TOTAL PROTEIN 6.7 g/dL (6.3-8.2)
[2024-09-16 04:04] VITALS: BP 143/76
[2024-09-16 06:44] VITALS: BP 142/78
--- NOTE | 2024-09-16 08:45 | NUR ---
Patient sitting up in bed watching televisiom with right foot elevated on two pillows.
--- NOTE | 2024-09-16 09:00 | NUR ---
BOOKED AN INFECTIOUS DISEASE CONSULT WITH DR RAI VIA THE [employer] [facility] AT 0900 HRS.
--- NOTE | 2024-09-16 09:31 | NUR ---
S: SHANTEL ZHAO is a 53 M who presents with osteomyelitis. O: VS: BP 142/78, P 90, RR 20,T 98.1 W 97 kg, HT 76 in, Scr= 0.5,CrCl= 183 ml/min A: Blood culture shows no growth and wound culture shows normal skin savannah. P: Patient is on Vancomycin and Zosyn. Vancomycin ordered for pharmacy to dose. Vancomycin trough 09/16 0330 resulted at 12 mcg/ml. Increase Vancomycin to 1250 mg IV q8h. Vancomycin trough is drawn before the 4th dose on 09/17 1130. Vancomycin goal trough is between 15-20 mcg/ml. Pharmacy will follow and or advise on antibiotics use as needed.
[2024-09-16] MEDS ORDERED: VANCOMYCIN HCL 1,250 MG in SODIUM CHLORIDE 0.9% 225 ML IV SCH (12:00)
--- NOTE | 2024-09-16 12:49 | NUR ---
Patient rounded on by ID physician via tele doc.
[2024-09-16 15:44] VITALS: BP 139/68
--- NOTE | 2024-09-16 17:30 | NUR ---
Patient sitting in bed watching television with right leg propped on 2 pillows.
[2024-09-16 18:12] VITALS: BP 147/73
--- NOTE | 2024-09-16 18:21 | NUR ---
Patient's right foot wound vac dressing changed as per MD order.
--- NOTE | 2024-09-16 20:00 | NUR ---
PT UP TO CHAIR NO DISTRESS NOTED ON ASSESSMENT. VS WNL ON RA LUNGS CLEAR. RIGHT FOOT WOUND VAC IN PLACE WORKING PROPERLY DRESSING INTACT NO DRAINAGE. PICC LINE FLUSHED AND ABX GIVEN WORKING PROPERLY. ORAL FLUIDS PROVIDED. CALL LIGHT WITHIN REACH. PLAN OF CARE ONGOING.
--- NOTE | 2024-09-16 23:47 | NUR ---
PT SLEEPING EASILY AROUSABLE NO DISTRESS NOTED. PICC LINE FLUSHED AND ABX GIVEN. CALL LIGHT WITHIN REACH. PLAN OF CARE ONGOING.
--- NOTE | 2024-09-17 00:35 | NUR ---
PATIENT RESTING IN BED POSITIONED ON LEFT SIDE WITH WOUND VAC TO THE RIGHT FOOT INTACT WITH 125MMHG CONT IN PLACE. PATIENT IS VOIDING CLEAR YELLOW URINE IN URINAL AT BEDSIDE. PICC TO MAURA INTACT. CALL LIGHT IN REACH. WILL CONT TO [facility].
--- NOTE | 2024-09-17 01:30 | NUR ---
PATIENT RESTING IN BED WITH WOUND VAC TO RIGHT HEEL INTACT. MEDICATED FOR PAIN WITH PERCOCET FOR 6/10 PAIN SCALE. CALL LIGHT IN REACH. WILL CONT TO MONITOR.
[2024-09-17 03:42] VITALS: BP 127/67
--- NOTE | 2024-09-17 03:46 | NUR ---
PATIENT RESTING IN BED-[facility] AND INFUSING VIA RIGHT UPPER ARM PICC ORDERED. PICC WITH GOOD BLOOD RETURN WHEN FLUSHED. WOUND VAC REMAINS INTACT TO RIGHT HEEL/FOOT ORDERED AT 125MMHG CONT SUCTION. DRAINING SMALL AMT OF DARK COLORED DRAINAGE. CONT TO VOID YELLOW URINE IN URINAL AT BEDSIDE. CALL LIGHT IN REACH, WILL CONT TO MONITOR.
--- NOTE | 2024-09-17 05:30 | NUR ---
PATIENT RESTING IN BED AT THIS TIME-[employer] INFUSING ORDERED VIA MAURA PICC-SITE IS HEALTHY WITH GOOD BLOOD RETURN WHEN FLUSHED. MEDICATED WITH MOM PER PATIENT REQUEST-DID HAVE SMALL BM YESTERDAY PER PATIENT AFTER TAKING MOM BUT ONLY SMALL ONE. CONT TO VOID GEMINI YELLOW URINE IN URINAL AT BEDSIDE. WOUND VAC TO RIGHT HEEL INTACT TO CONT SUCTION ORDERED. CALL LIGHT IN REACH. WILL CONT TO MONITOR.
[2024-09-17 07:00] VITALS: BP 147/89
--- NOTE | 2024-09-17 07:18 | NUR ---
ubaldo niño x3; room air; breathing unlabored and even; patient laying on right side of bed; pain in foot at this time; patient already medicated per emar; wound van intact and working with no issues; no labs today noticed; picc in placed and saline locked with no issues; no s.s of distress at this time; glucose 161 1 unit mirna be given; call light within reach,verbalized understanding on how to use, personal item within reach, bed in lowest postion;safety measures in place
--- NOTE | 2024-09-17 09:16 | NUR ---
patient complaints of having constipation last one was before the 5th, states the Miralax does not work and the milk of mag was tooken this am and nothing yet, talked to abel awaiting new orders
[2024-09-17] MEDS ORDERED: LACTULOSE 20 GM/30 ML UDC PO PRN (09:20)
--- NOTE | 2024-09-17 12:30 | NUR ---
PATIENT SITTING ON SIDE OF BED EATING LUNCH; DENIED ANY COMPLAINTS; DNEIED ANY N/D/V AT THIS TIME; PICC WORKING WITH NO ISSUES WITH NOISSUES; DENEID ANY N/D/V AT THIS TIEM; NO S.S OF DISTRESS; WOUND VAC WORKING WITH NOISSUES; CALL LIGHT WITHIN REACH,VERBALIZED UNDERSTADING ON HOW TO USE, PERSONAL ITEMS WITHIN REACHL BEDIN LOWEST POSTION; PATIENT STATED SINCE MEDICATED THIS MORNING HE HAS HOW A BOWL MOVEMNET WITH NO ISSUES
--- NOTE | 2024-09-17 14:22 | NUR ---
S: SHANTEL ZHAO is a 53 M who presents with OSTEOMYELITIS. O: VS: BP 147/89, P 95, RR 20,T 96.7 W 97 kg, HT 76 IN, Scr= 0.5,CrCl= 130 ml/min A: Blood culture shows no growth and wound culture shows normal skin savannah. P: Patient is on Vancomycin and Zosyn. Vancomycin ordered for pharmacy to dose. Vancomycin trough on 09/17 1130 resulted at 15 mcg/ml. Continue Vancomycin 1250 mg IV Q8H. Vancomycin trough is drawn before the 4th dose on 09/18 1130. Vancomycin goal trough is between <15-20 mcg/ml>. Pharmacy will follow and or advise on antibiotics use as needed.
[2024-09-17 14:54] VITALS: BP 138/70
--- NOTE | 2024-09-17 15:46 | NUR ---
patient resting in bed; room air; breathing unlabored and even; dened any complaints; denied any n/d/v at this time; no s.s of distress at this time; picc in placed and working with no issues saline locked; wound vac clean and intact and working with no issues; call light within reach, verbalized understadning on how to use, personal ites within reach, bed in lowest postion; safety measaures in place; report was given to wolf
[2024-09-17 19:08] VITALS: BP 113/66
--- NOTE | 2024-09-17 19:50 | NUR ---
PT RESTING IN BED NO DISTRESS NOTED ON ASSESSMENT. VS WNL ON RA LUNGS CLEAR. WOUND VAC ON RIGHT FOOT WORKING PROPERLY NO LEAKS DRESSING INTACT. PICC LINE FLUSHED AND ABX GIVEN. CALL LIGHT WITHIN REACH. PLAN OF CARE ONGOING.
--- NOTE | 2024-09-18 00:17 | NUR ---
PT SLEEPING EASILY AROUSABLE. PICC LINE FLUSHE ABX GIVEN. CALL LIGHT WITHIN REACH. PLAN OF CARE ONGOING.
[2024-09-18 03:40] VITALS: BP 149/90
--- NOTE | 2024-09-18 03:40 | NUR ---
PT SLEEPING EASILY AROUSABLE NO DISTRESS NOTED ON EXAM. PICC LINE FLUSHED AND ABX GIVEN. CALL LIGHT WITHIN REACH. PLAN OF CARE ONGOING.
--- NOTE | 2024-09-18 07:10 | NUR ---
PT LAYING IN BED WATCHING TV, PT IS A&O X3, PUPILS PERRL, NORMAL S1 S2 HEART SOUNDS, RESP. EVEN AND UNLABORED, LUNG SOUNDS ARE CLEAR, ABD DISTENDED AND SOFT WITH ACTIVE BOWEL SOUNDS, STRONG RADIAL PULSES, STRONG L FOOT PEDAL PULSES, WEAK R FOOT PEDAL PULSES, MAURA PICC LINE IN PLACE, SAFETY MEASURES REINFORCED, CALL CADE WITHIN REACH
[2024-09-18 07:20] VITALS: BP 139/70
[2024-09-18] MEDS ORDERED: traMADol HCL 50 MG/TAB PO PRN (08:40)
--- NOTE | 2024-09-18 12:00 | NUR ---
PT SITTING UP IN THE RECLINER WATCHING TV, PT DENIES ANY NEEDS AT THIS TIME, PT REMINDED TO CALL FOR ASSISTANCE, PT VERBALIZED UNDERSTANDING, CALL CADE WITHIN REACH
--- NOTE | 2024-09-18 14:32 | NUR ---
S: SHANTEL ZHAO is a 53 M who presents with diabetic foot infection and osteomyelitis. O: VS: BP 139/70, P 86, RR 18, T 97.6 W 97 kg, HT 76 in, Scr= 0.5,CrCl= 183 ml/min Vancomycin trough 09/18@1135 = 17 A: Vancomycin trough level within therapeutic range of 15-20. No change in dose is warranted. P: Patient is on Zosyn 3.375 g IV q6h and vancomycin 1250 mg IV q8h. Vancomycin ordered for pharmacy to dose. Continue Vancomycin 1250 mg IV Q8H. Vancomycin trough is drawn before the dose on 09/19@1130. Vancomycin goal trough is between 15-20 mcg/ml. Pharmacy will follow and or advise on antibiotics use as needed.
--- NOTE | 2024-09-18 15:45 | NUR ---
WOUND VAC REMOVED FOR DRESSING CHANGE, METAL OBJECT SEEN IN WOUND BED, ADENIKE NOTIFIED AND VERIFIED METAL OBJECT WAS IN PT'S FOOT, DR HELMS NOTIFED, OLVIN TO PT'S ROOM ALSO AND VERIFED METAL WAS IN PT'S FOOT, OLVIN CONTACTED DR HELMS ALSO AND ORDERS WERE GIVEN, METAL STAPLE REMOVED FROM PT'S WOUND, WOUND REAPPLIED AFTER REMOVAL OF STAPLE
--- NOTE | 2024-09-18 15:45 | NUR ---
Called spoke with Dr. Chirinos about staple looking foreign in patients foot. Staple removed per order by . Staple was 1/8 inch by 1/8 inch in shape. Staple placed in specimen cup and labeled. Pictures sent to Dr. Chirinos
[2024-09-18 15:58] VITALS: BP 140/73
--- NOTE | 2024-09-18 16:00 | NUR ---
PT LAYING IN BED WATCHING TV, DENIES ANY NEEDS AT THIS TIME, CALL CADE WITHIN REACH
[2024-09-18 18:32] VITALS: BP 128/70
--- NOTE | 2024-09-18 20:00 | NUR ---
RECEIVED REP[ORT FROM NURSE LORRIE, PATIENT RESTING IN BED, MAURA PICC BLOOD RETURN NOTED FLUSHES WELL, LUNG SOUNDS CLEAR, ACTIVE BOWEL SOUNDS LBM 12/, WOUND VAC IN PLACED 125 SUCTION ON RT FOOT, CALL LIGHT IN REACHED.
[2024-09-19] VITALS (7 sets, daily range): BP systolic 120–149; BP diastolic 60–86
--- NOTE | 2024-09-19 00:30 | NUR ---
DUE ZOSYN CURRENTLY INFUSING, DENIES PAIN AT THIS TIME, CALL LIGHT WITHIN REACHED.
--- NOTE | 2024-09-19 04:55 | NUR ---
DUE LAB OBTAINED FROM PICC LINE, AND FLUSHED, PATIENT NOT IN DISTRESS, BREATHING EVEN UNALBORED CALL LIGHT IN REACHED.
[2024-09-19 05:49] LABS: BASO% 0.8 % (0-3); EOS% 3.5 % (0-8); HEMATOCRIT 31.4 % (39.0-50.0); HEMOGLOBIN 10.1 g/dl (14.0-18.0); IMMATURE GRANULOCYTES 0.3 % (0.0-5.0); LYMPH% 34.9 % (15-41); MEAN CELL VOLUME 92.6 fL CALC (80.0-100.0); MEAN CORPUSCULAR HGB 29.8 pG CALC (26.0-32.0); MEAN CORPUSCULAR HGB CONC 32.2 g/dL CAL (32.0-36.0); MONO% 11.1 % (2-13); NEUT# 1.97 thou/uL (1.82-7.42); NEUT% 49.4 % (42-76); RED BLOOD COUNT 3.39 mill/uL (4.70-6.10); RED CELL DISTRI WIDTH 14.5 % (11.5-15.5)
[2024-09-19 06:01] LABS: ALBUMIN 3.2 g/dL (3.2-5.0); BILIRUBIN, TOTAL 0.7 mg/dL (0.2-1.3); CREATININE 0.6 mg/dL (0.7-1.3); MAGNESIUM 1.7 mg/dL (1.6-2.3); POTASSIUM 4.4 mmol/l (3.5-5.1)
--- NOTE | 2024-09-19 07:00 | NUR ---
SHIFT CHANGE REPORT, PT AWAKE ALERT AND ORIENTED RESTING IN BED, C/O RIGHT FOOT PAIN @ 5/10, TELE MONITOR IN PLACE, WOUND IN PLACE, CALL CADE IN REACH AND BED LOCKED IN LOWEST POSITION.
[2024-09-19] MEDS ORDERED: PIPERACILLIN SO1 INJ IV (09:32)
[2024-09-19] MEDS ORDERED: DAPTOMYCIN/SODI1 IN2 IV (09:32)
--- NOTE | 2024-09-19 12:00 | NUR ---
PAIN CONCERN ADDRESSED, CONDITION STABLE.
--- NOTE | 2024-09-19 20:00 | NUR ---
RECEIVED REPORT FROM NURSE CUNNINGHAM,PATIENT RSETING IN BED,WATCHING TV, NOT IN DISTRESS, WOUND VAC ON RT FOOT AT 125 SUCTION, PICC LINE DRESSING CHANGED, CALL LIGHT IN REACHED.
--- NOTE | 2024-09-19 20:35 | NUR ---
PICC LINE DRESSING CHANGEDONE.
--- NOTE | 2024-09-20 00:22 | NUR ---
DUE ZOSYN CURRENTLY INFUSING C/ O PAIN ON RT FOOT WILL MEDIACTE.
--- NOTE | 2024-09-20 04:35 | NUR ---
DUE LABS OBTAINED FROM PICC LINE, AND FLUSHESD, DENIES PAIN AT THIS TIME, CALL LIGHT WITHIN REACHED.
[2024-09-20 04:48] VITALS: BP 122/80
[2024-09-20 05:27] VITALS: BP 122/80
[2024-09-20 05:35] LABS: BASO% 0.3 % (0-3); EOS% 3.5 % (0-8); HEMATOCRIT 31.3 % (39.0-50.0); HEMOGLOBIN 9.9 g/dl (14.0-18.0); IMMATURE GRANULOCYTES 0.8 % (0.0-5.0); LYMPH% 35.1 % (15-41); MEAN CELL VOLUME 94.3 fL CALC (80.0-100.0); MEAN CORPUSCULAR HGB 29.8 pG CALC (26.0-32.0); MEAN CORPUSCULAR HGB CONC 31.6 g/dL CAL (32.0-36.0); MONO% 11.3 % (2-13); NEUT# 1.96 thou/uL (1.82-7.42); RED BLOOD COUNT 3.32 mill/uL (4.70-6.10); RED CELL DISTRI WIDTH 14.7 % (11.5-15.5)
[2024-09-20 05:50] LABS: ALBUMIN 3.1 g/dL (3.2-5.0); BILIRUBIN, TOTAL 0.6 mg/dL (0.2-1.3); CREATININE 0.6 mg/dL (0.7-1.3); MAGNESIUM 1.6 mg/dL (1.6-2.3); POTASSIUM 4.6 mmol/l (3.5-5.1); TOTAL PROTEIN 6.5 g/dL (6.3-8.2)
[2024-09-20 07:14] VITALS: BP 115/72
[2024-09-20] MEDS ORDERED: SODIUM CHLORIDE 0.9% 0 ML IV ONE (11:55)
[2024-09-20] MEDS ORDERED: LIDOCAINE 4 % PATCH TD SCH (14:30)
[2024-09-20 15:32] VITALS: BP 134/55
[2024-09-20 18:40] VITALS: BP 135/79
--- NOTE | 2024-09-20 19:17 | NUR ---
wound vac Dressing change to Right Foot Completed. patient has a 3m Wound vac.
--- NOTE | 2024-09-20 19:18 | NUR ---
spoke with patient several times today about not getting into the shower with Wound vac and Piccline. He was upset and i explained the risk of getting in the shower. he staated he has been doing so, again explained that he can only do sponge bath not shower. Store Team Leader Chapis is aware and agreed its unsafe.
--- NOTE | 2024-09-20 19:36 | NUR ---
PATIENT IN ROOM RESTING IN BED WATCHING TV. PATIENT CAN MAKE NEEDS KNOWN NONE NEEDED AT THIS TIME. BED SIDE ASSESSMENT COMPLETE, WOUND VAC IN PLACE TO RIGHT HEEL. EQUAL UNLABORED RESP. NO VISUAL SIGNS OF DISTRESS. BED AT LOWEST POSITION. CALL LIGHT WITH IN REACH.
--- NOTE | 2024-09-21 00:24 | NUR ---
PATIENT IN ROOM RESTING IN BED WATCHING TV. PATIENT REPORTS OF PAIN OF A 6. REFERED TO EMAR FOR MEDICATIONS. UNLABORED RESP NO VISUAL SIGNS OF DISTRESS. WOUND VACC IN PLACE TO RIGHT HEEL. BED AT LOWEST POSITION CALL LIGHT WITH IN REACH.
--- NOTE | 2024-09-21 03:34 | NUR ---
PATIENT IN ROOM RESTING WITH EYES CLOSED. PATIENT HAS EQUAL UNLABORED RESP. NO VISUAL SIGNS OF DISTRESS. WOUND VACC IN PLACE WORKING PROPERLY. BED AT LOWEST POSITION. CALL LIGHT WITH IN REACH.
[2024-09-21 04:28] VITALS: BP 120/69
--- NOTE | 2024-09-21 07:00 | NUR ---
REPORT RECEIVED FROM SAMEERA HO
[2024-09-21 07:22] VITALS: BP 134/73
--- NOTE | 2024-09-21 09:00 | NUR ---
PT RESTING IN SEMI FOWLERS POSITION,A&O X3;PT REPORTS RIGHT FOOT PAIN RATING 5/10 ON THE PAIN SCALE AND REQUESTS PRN PAIN MEDICATION, PT MEDICATED WITH PRN ULTRAM 50MG PO;ASSESSMENT COMPLETED;RESPIRATIONS EVEN AND UNLABORED ON RA,CLEAR LUNG SOUNDS;ABDOMEN SOFT ON PALPATION AND ACTIVE IN ALL 4 QUADRANTS;MAURA SL PICCLINE FLUSHED AND PATENT WITH GOOD BLOOD RETURN NOTED;WOUND VAC NOTED TO RIGHT FOOT RUNNING AT 125MMHG PER ORDER;ACCUCHECK 102, NO COVERAGE NEEDED;PT DENIES ANY ADDITIONAL NEEDS AND IS ENCOURAGED TO CALL FOR ASSISTANCE IF NEEDED;FALL PRECAUTIONS REMAIN IN PLACE WITH BED IN THE LOWEST POSITION AND CALL LIGHT IN REACH;FREQUENT ROUNDS MADE.
--- NOTE | 2024-09-21 11:25 | NUR ---
PT RESTING AT BEDSIDE EATING LUNCH AFTER HIS SHOWER;RESPIRATIONS EVEN AND UNLABORED ON RA;PT DENIES ANY CURRENT PAIN OR NEEDS;MAURA PICCLINE FLUSHED AND PATENT,ABX ADMINISTERED AT THIS TIME PER ORDER;WOUND VAC IN PLACE RUNNING WITH EASE;ACCUCHECK 199, PT COVERED WITH SLIDING SCALE INSULIN PER ORDER;PT DENIES ANY ADDITIONAL NEEDS AND IS ENCOURAGED TO CALL FOR ASSISTANCE IF NEEDED;CALL LIGHT IN REACH;FREQUENT ROUNDS MADE.
[2024-09-21 14:39] VITALS: BP 134/73
--- NOTE | 2024-09-21 14:50 | NUR ---
PT REPORTS RIGHT FOOT PAIN RATING 6/10 ON THE PAIN SCALE AND REQUESTS PRN PAIN MEDICATION. PT MEDICATED WITH PRN ULTRAM 50MG PO AT THIS TIME.
--- NOTE | 2024-09-21 15:25 | NUR ---
PT RESTING AT BEDSIDE;RESPIRATIONS EVEN AND UNLABORED ON RA;PT REPORTS PAIN RELIEF AFTER PRN ULTRAM ADMINISTRATION;MAURA SL PICCLINE REMAINS PATENT;WOUND VAC RUNNING AT 125 PER ORDER TO RIGHT FOOT;200CC OF CLEAR/YELLOW URINE EMPTIED FROM URINAL. PT DENIES ANY ADDITIONAL NEEDS AND IS ENCOURAGED TO CALL FOR ASSISTANCE IF NEEDED;FALL PRECAUTIONS REMAIN IN PLACE WITH CALL LIGHT IN REACH;FREQUENT ROUNDS MADE.
--- NOTE | 2024-09-21 17:00 | NUR ---
PT BLOOD SUGAR 85. PT PROVIDED MEAL TRAY AND ORANGE JUICE.
--- NOTE | 2024-09-21 17:45 | NUR ---
BLOOD GLUCOSE RECHECK 160
[2024-09-21 19:17] VITALS: BP 126/54
--- NOTE | 2024-09-21 20:02 | NUR ---
PATIENT IN ROOM RESTING IN BED ON RIGHT SIDE. WOUND VACC IN PLACE. NO REPORTS OF PAIN AT THIS TIME. EQUAL UNLABORED RESP. NO VISUAL SIGHS OF DISTRESS. BED AT LOWEST POSITION. CALL LIGHT WITH IN REACH.
--- NOTE | 2024-09-22 00:15 | NUR ---
PATIENT OBSERVED TO BE RESTING IN BED ON LEFT SIDE WITH EYES CLOSED. UNLABORED RESP NO VISUAL SIGNS OF DISTRESS. BED AT LOWEST POSITION. CALL LIGHT WITH IN REACH.
[2024-09-22 03:02] VITALS: BP 141/75
--- NOTE | 2024-09-22 04:13 | NUR ---
PATIENT IN BED RESTING WATCHING TV. PATIENT REPORTS PAIN OF A 8 WILL REFER TO EMAR. EQUAL UNLABORED RESP. NO VISUAL SIGNS OF DISTRESS. BED AT LOWEST POSITION CALL LIGHT WITH IN REACH.
[2024-09-22 05:18] LABS: BASO% 0.5 % (0-3); HEMATOCRIT 32.8 % (39.0-50.0); HEMOGLOBIN 10.3 g/dl (14.0-18.0); IMMATURE GRANULOCYTES 0.2 % (0.0-5.0); LYMPH% 29.6 % (15-41); MEAN CELL VOLUME 93.7 fL CALC (80.0-100.0); MEAN CORPUSCULAR HGB 29.4 pG CALC (26.0-32.0); MEAN CORPUSCULAR HGB CONC 31.4 g/dL CAL (32.0-36.0); MONO% 12.6 % (2-13); NEUT# 2.31 thou/uL (1.82-7.42); NEUT% 52.1 % (42-76); RED BLOOD COUNT 3.5 mill/uL (4.70-6.10); RED CELL DISTRI WIDTH 14.5 % (11.5-15.5)
[2024-09-22 05:34] LABS: ALBUMIN 3.3 g/dL (3.2-5.0); BILIRUBIN, TOTAL 0.7 mg/dL (0.2-1.3); CREATININE 0.7 mg/dL (0.7-1.3); MAGNESIUM 1.7 mg/dL (1.6-2.3); POTASSIUM 4.8 mmol/l (3.5-5.1); TOTAL PROTEIN 6.9 g/dL (6.3-8.2)
[2024-09-22 06:56] VITALS: BP 131/75
--- NOTE | 2024-09-22 08:30 | NUR ---
PATIENT A/O X3; ROOM AIR; BREATHING UNLABORE AND EVEN; DENIED ANY N/D/V AT THIS TIME; PAIN PATCH APPLIE TO LEFT UPPER ARM; PICC LINE CLEAN AND INTACT SALINE LOCKED AT THIS TIME; NO S.S OF SITRESS; PATIENT SITTING ON SIDE OF BED WATCHING TV; WOUND VAC CLEAN AND INTCAT RUNING AT 125; NO COMPLAINTS AT THIS TIME; CALL LIGHT WITHIN REACH, VERBALIZED UNDERSTANDING ON HOW TO USE, PERSONAL ITEMS WITHIN REACHL; BED IN LOWEST POSTION SAFETY MEASURES IN PALCE
--- NOTE | 2024-09-22 12:20 | NUR ---
patient a/o x3; laying in bed watching tv; picc line working with no issues medicated per emar; no s.s of distress at this tiem; deneid any pain; denied any n/dv at this time; no complaints; wound vac is working with nossies; call light within reach,verbalzied understanding on how to use, personal items within reach; [facility];safety meaures inplace
[2024-09-22 15:27] VITALS: BP 127/69
--- NOTE | 2024-09-22 16:23 | NUR ---
PATIENT IN BED WATCHING TV; ROOMAAIR; DENIED ANY PAIN; DNEIED ANY N/D/V AT THIS TIME; PICC LINE CLEAN ADN INTACT SALINE LOCKED; NO S.S OF DISTRESS; WOUND VAC CLEAN AND INACT; NO COMPLAINTS; CALL LIGHTW ITHIN REACH,VERBALIZED UNDERSTANDING ON HOW TO USE, PERSONAL ITEMS WITHIN REACH; BEDIN LOWEST POSTION;SAFETY MEASURES IN PLACE
[2024-09-22 18:43] VITALS: BP 111/67
--- NOTE | 2024-09-22 20:00 | NUR ---
RECEIVED REPORT FORM DAYSHIFT NURSE. PT NOTED LAYING IN BED SUPINE, RESTING COMFORTABLY. ARUSABLE TO SPEECH. PT IS A/0X3, ON RM AIR. WOUND VAC NOTED TO RT FOOT. NURSING ASSESSMENT COMPLETED, MAURA PICC IN PLACE. SITE APPEARS HEALTHY AND INTACT, FLUSHES W/O DIFFICULTY. EDUCATED PT ON PLAN OF CARE AND MED SCHEDULE. VSS. NO S/S OF DISTRESS. CALL LIGHT WITHIN REACH AND SAFETY PRECAUTIONS IN PLACE.
--- NOTE | 2024-09-23 | NUR ---
PT NOTED LAYING IN BED SUPINE, RESTING COMFORTABLE AT THIS TIME. VSS. NO S/S OF DISTRESS. WOUND VAC IN PLACE. CALL LIGHT WITHIN REACH AND SAFETY PRECAUTIONS IN PLACE.
--- NOTE | 2024-09-23 04:10 | NUR ---
LABS DRAWN BY FISH BONING MACHINE FEEDER VIA PICC LINE. PT LAYING IN BED SUPINE, WATCHING TV AT THIS TIME. PT DENIES ANY N/V/P AT THIS TIME. VSS. NO S/S OF DISTRESS. CALL LIGHT WITHIN REACH AND SAFETY PRECAUTIONS IN PLACE.
[2024-09-23 04:24] VITALS: BP 154/85
[2024-09-23 05:44] LABS: BASO% 0.7 % (0-3); EOS% 4.5 % (0-8); HEMATOCRIT 32.4 % (39.0-50.0); HEMOGLOBIN 10.2 g/dl (14.0-18.0); IMMATURE GRANULOCYTES 0.5 % (0.0-5.0); LYMPH% 30.5 % (15-41); MEAN CELL VOLUME 93.9 fL CALC (80.0-100.0); MEAN CORPUSCULAR HGB 29.6 pG CALC (26.0-32.0); MEAN CORPUSCULAR HGB CONC 31.5 g/dL CAL (32.0-36.0); MONO% 12.6 % (2-13); NEUT# 2.27 thou/uL (1.82-7.42); NEUT% 51.2 % (42-76); RED BLOOD COUNT 3.45 mill/uL (4.70-6.10); RED CELL DISTRI WIDTH 14.5 % (11.5-15.5)
[2024-09-23 05:52] LABS: ALBUMIN 3.2 g/dL (3.2-5.0); BILIRUBIN, TOTAL 0.6 mg/dL (0.2-1.3); CREATININE 0.7 mg/dL (0.7-1.3); MAGNESIUM 1.8 mg/dL (1.6-2.3); POTASSIUM 4.6 mmol/l (3.5-5.1); TOTAL PROTEIN 6.8 g/dL (6.3-8.2)
[2024-09-23 07:13] VITALS: BP 141/83
--- NOTE | 2024-09-23 08:00 | NUR ---
REPORT RECEIVED FROM NIGHT NURSE. PATIENT AXO X3. S1S2 NOTED, HR REGULAR. LUNG SOUNDS CLEAR, NO COUGH OR SOB NOTED. ABDOMEN SOFT, NON DISTENDED, NON TENDER, WITH ACTIVE BOWEL SOUNDS. UPPER PULSES STRONG, LOWER WEAK. SKIN WARM AND DRY. WOUND VAC NOTED TO RIGHT FOOT. CALL LIGHT IN REACH.
[2024-09-23] MEDS ORDERED: CLOTRIMAZOLE W/ BETAMETHASONE CREAM 15 GM TUBE EX SCH ×2 (10:00)
--- NOTE | 2024-09-23 12:00 | NUR ---
PATIENT SITTING UP IN BED TALKING ON THE PHONE. ALL NEEDS MET. CALL LIGHT IN REACH.
--- NOTE | 2024-09-23 16:00 | NUR ---
PATIENT SITTING UP IN BED WATCHING TV. ALL NEEDS MET. CALL LIGHT IN REACH.
--- NOTE | 2024-09-23 17:27 | NUR ---
WOUND VAC CHANGE COMPLETED. PATIENT TOLERATED WELL. CALL LIGHT IN REACH.
[2024-09-23 18:30] VITALS: BP 147/87
[2024-09-23 18:33] VITALS: BP 147/87
--- NOTE | 2024-09-23 20:00 | NUR ---
PATIENT LAYING DOWN IN BED RESTING WITH EYES CLOSED. DENIES NEEDS AT THIS TIME. CALL LIGHT IN REACH.
--- NOTE | 2024-09-23 23:00 | NUR ---
PATIENT LAYING DOWN IN BED. ALL NEEDS MET. CALL LIGHT IN REACH.
[2024-09-24] VITALS (8 sets, daily range): BP systolic 135–154; BP diastolic 59–73
--- NOTE | 2024-09-24 00:40 | NUR ---
REPORT RECEIVED FROM JOVANY SKY
--- NOTE | 2024-09-24 01:00 | NUR ---
PATIENT UP TO SIDE OF THE BED TO VOID. 600 mL OF YELLOW URINE NOTED IN URINAL. DENIES CONCERNS AT THIS TIME. NO APPARENT DISTRESS NOTED. WILL CONTINUE WITH PLAN OF CARE.
--- NOTE | 2024-09-24 04:00 | NUR ---
PATIENT UP TO THE SIDE OF THE BED REQUESTING COFFEE, WILL PROVIDE AFTER MAKING. DENIES ADDITIONAL NEEDS OR CONCERNS. NO APPARENT DISTRESS NOTED. WILL CONTINUE WITH PLAN OF CARE
[2024-09-24] MEDS ORDERED: SODIUM CHLORIDE 0.9% 0 ML IV ONE (11:44)
--- NOTE | 2024-09-24 18:25 | NUR ---
patient completed his own wound care, I reminded him that we need to make sure that he it completing wound care with aspetic technique. as well as staff must see wound sowe are aware of appreance, etc.
[2024-09-25 04:50] VITALS: BP 144/78
[2024-09-25 05:20] VITALS: BP 144/78
[2024-09-25 08:27] VITALS: BP 138/86
[2024-09-25] MEDS ORDERED: SODIUM CHLORIDE 0.9% 100 ML IV ONE (13:32)
[2024-09-25 16:03] VITALS: BP 132/77
[2024-09-25 18:30] VITALS: BP 138/63
[2024-09-25 19:02] VITALS: BP 138/63
--- NOTE | 2024-09-25 22:30 | NUR ---
PT RESTING IN BED NO DISTRESS NOTED ON ASSESSMENT. PICC LINE FLUSHED WORKING PROPERLY. PT REPORTED PAIN 5/10 ON RIGHT FOOT AND LEFT SHOULDER. PAIN MEDICATION PROVIDED. DRESSING ON RIGHT FOOT CLEAN, INTACT, AND NO DRAINAGE. CALL LIGHT WITHIN REACH. PLAN OF CARE ONGOING.
--- NOTE | 2024-09-26 00:15 | NUR ---
DRESSING CHANGE ON RIGHT FOOT WET TO DRY. PICC FLUSHED AND SL. CALL LIGHT WITHIN REACH. PLAN OF CARE ONGOING.
--- NOTE | 2024-09-26 04:00 | NUR ---
PT RESTING NO DISTRESS NOTED ON EXAM. CALL LIGHT WITHIN REACH.
[2024-09-26 04:44] VITALS: BP 123/79
[2024-09-26 04:45] VITALS: BP 123/79
[2024-09-26 07:13] VITALS: BP 120/69
--- NOTE | 2024-09-26 07:26 | NUR ---
PATIENT SITTING UP ON SIDE OF BED AWAKE. PATIENT A&OX3. BREATHING UNLABORED ON ROOM AIR. MAURA PICC SL;SITE CLEAN AND INTACT. PT STATES TO HAVE PAIN IN LEFT SHOULDER;MEDICATION REVIEWED. PT DENIES ANY N/D/V AT THIS TIME. PERSONAL ITEMS WELL CALL LIGHT WITHIN REACH;PT VERBALIZED UNDERSTANDING OF USE. NO OTHER NEEDS AT THIS TIME. POC ONGOING.
[2024-09-26] MEDS ORDERED: VANCOMYCIN HCL 1 GM/VIAL IV SCH (10:16)
[2024-09-26] MEDS ORDERED: [UNRECOGNIZED DRUG - OTHER] IV (10:23)
[2024-09-26] MEDS ORDERED: TRAMADOL HYDROC50 M1 PO (11:08)
[2024-09-26] MEDS ORDERED: LOSARTAN POTASS25 MG PO (11:08)
[2024-09-26] MEDS ORDERED: FLORASTOR250 M1 PO (11:09)
[2024-09-26] MEDS ORDERED: CYCLOBENZAPRINE HCL 5 MG TAB PO PRN (11:10)
[2024-09-26] MEDS ORDERED: LIDOCAINE PAIN RE4 % TD (11:14)
[2024-09-26] MEDS ORDERED: METHOCARBAMOL500 MG PO (11:36)
--- NOTE | 2024-09-26 12:37 | NUR ---
PATIENT GETTING READY FOR SHOWER. MAURA PISS DRESSING CHANGED COMPLETED WELL FOOT DRESSING. PT DENIES ANY NEEDS AT THIS TIME. POC ONGOING.
[2024-09-26] MEDS ORDERED: VANCOMYCIN HCL 1,250 MG in SODIUM CHLORIDE 0.9% 225 ML IV SCH (13:00)
[2024-09-26 15:23] VITALS: BP 145/75
--- NOTE | 2024-09-26 16:24 | NUR ---
PATIENT IN ROOM PACKING BELONGINGS. DISCHARGE PAPERS REVIEWED AND SIGNED. PT DENIES NEEDING ANYTHING AT THIS TIME. POC ONGOING.
--- NOTE | 2024-09-26 17:25 | NUR ---
Discharge instructions given. Patient verbalizes understanding of same. Discharged in stable condition via Stretcher to *Other with staff. All belongings sent with pt.
--- NOTE | 2024-09-27 10:44 | NUR ---
CONTACTED [facility]IA THE [employer] [facility] TO DOCUMENT END THERAPY AND SCHEDULE PICKUP OF THE ULTA WOUND VAC (#[id number]) ASSIGNED TO THIS PATIENT. CONFIRMATION #[id number].
== END 2024-09-26 17:25 | DRG 623 ==
LOC: ED 09:27 → ED-I 10:00 → ED 10:00 → ED-I 10:20 → ED 11:00 → MS2 11:01
PROVIDERS: Family Medicine; Internal Medicine; Nurse Practitioner Family; ADMIT Student in an Organized Health Care Education/Training Program; ATTEND Student in an Organized Health Care Education/Training Program
PROC: 0JBQ0ZZ Excision of Right Foot Subcutaneous Tissue and Fascia, Open Approach (ICD-10-PCS; principal; 2024-09-04)
PROC: 02HV33Z Insertion of Infusion Device into Superior Vena Cava, Percutaneous Approach (ICD-10-PCS; 2024-09-09)
PROC: B518ZZA Fluoroscopy of Superior Vena Cava, Guidance (ICD-10-PCS; 2024-09-09)
DX: E11.69 Type 2 diabetes mellitus with other specified complication (principal); E11.52 Type 2 diabetes mellitus with diabetic peripheral angiopathy with gangrene; L97.419 Non-pressure chronic ulcer of right heel and midfoot with unspecified severity; I96 Gangrene, not elsewhere classified; M86.271 Subacute osteomyelitis, right ankle and foot; L03.115 Cellulitis of right lower limb; E11.621 Type 2 diabetes mellitus with foot ulcer; E11.40 Type 2 diabetes mellitus with diabetic neuropathy, unspecified; I10 Essential (primary) hypertension; E11.628 Type 2 diabetes mellitus with other skin complications; M19.012 Primary osteoarthritis, left shoulder; N40.0 Benign prostatic hyperplasia without lower urinary tract symptoms; M79.5 Residual foreign body in soft tissue; L21.9 Seborrheic dermatitis, unspecified; M62.838 Other muscle spasm; D64.9 Anemia, unspecified; E11.65 Type 2 diabetes mellitus with hyperglycemia; Z87.891 Personal history of nicotine dependence; Z79.84 Long term (current) use of oral hypoglycemic drugs
CPT/HCPCS: G0378; J0131; J0878; J1171; J1650; J1815; J2543; J3370

== ENCOUNTER 2024-12-19 15:53 | Inpatient (IN) | payer OTHER ==
[~2024-12-19] VITALS: Ht 193 cm; Wt 90.0 kg
[~2024-12-19 15:53] MED LIST changes: +DAPTOMYCIN/SODI1 IN2 IV; +FLORASTOR250 M1 PO; +LIDOCAINE PAIN RE4 % TD; +LOSARTAN POTASS25 MG PO; +METHOCARBAMOL500 MG PO; +PIPERACILLIN SO1 INJ IV; +TRAMADOL HYDROC50 M1 PO; +[UNRECOGNIZED DRUG - OTHER] IV
[2024-12-19 16:00] VITALS: BP 100/66
[2024-12-19 16:37] LABS: BASO% 0.1 % (0-3); HEMATOCRIT 27.3 % (39.0-50.0); HEMOGLOBIN 9.1 g/dl (14.0-18.0); IMMATURE GRANULOCYTES 0.4 % (0.0-5.0); LYMPH% 2.4 % (15-41); MEAN CELL VOLUME 80.3 fL CALC (80.0-100.0); MEAN CORPUSCULAR HGB 26.8 pG CALC (26.0-32.0); MEAN CORPUSCULAR HGB CONC 33.3 g/dL CAL (32.0-36.0); MONO% 4.7 % (2-13); NEUT# 13.3 thou/uL (1.82-7.42); NEUT% 92.4 % (42-76); RED BLOOD COUNT 3.4 mill/uL (4.70-6.10); RED CELL DISTRI WIDTH 16.1 % (11.5-15.5)
[2024-12-19 16:53] LABS: ALBUMIN 3.2 g/dL (3.2-5.0); ALKALINE PHOSPHATASE 184 u/l (38-126); BUN 29 mg/dL (9-20); BUN/CREATININE RATIO 24 (12-20 (CALC)); CARBON DIOXIDE 22 mmol/l (22-30); CHLORIDE 95 mmol/l (95-108); CPK 1105 u/l (55-170); CREATININE 1.2 mg/dL (0.7-1.3); ESTIMATED GFR 72 ML/MIN (>=90 (CALC)); POTASSIUM 4.8 mmol/l (3.5-5.1); SGOT/AST 103 u/l (17-59); TOTAL PROTEIN 7.3 g/dL (6.3-8.2)
[2024-12-19 16:59] LABS: ANION GAP 12 (6-22 (CALC)); BILIRUBIN, TOTAL 1.2 mg/dL (0.2-1.3); SODIUM 124 mmol/l (137-146)
[2024-12-19] MEDS ORDERED: SODIUM CHLORIDE 0.9% 1,000 ML IV ONE ×2 (17:30)
[2024-12-19] MEDS ORDERED: METFORMIN HCL500 M1 PO (17:55)
[2024-12-19] MEDS ORDERED: GLIPIZIDE10 M3 (17:56)
[2024-12-19 20:00] VITALS: BP 100/55
[2024-12-19 20:23] VITALS: BP 116/71
[2024-12-19 20:35] VITALS: BP 106/68
[2024-12-19] MEDS ORDERED: MAGNESIUM HYDROXIDE 30 ML UDC PO PRN (20:40)
[2024-12-19] MEDS ORDERED: SODIUM CHLORIDE 0.9% 1,000 ML IV PRN (20:40)
[2024-12-19] MEDS ORDERED: DEXTROSE 250 ML IV PRN (20:40)
[2024-12-19] MEDS ORDERED: ACETAMINOPHEN 325 MG/TAB PO PRN (20:40)
[2024-12-19] MEDS ORDERED: INSULIN LISPRO 100 UNITS/ML ML SC SCH (21:00)
[2024-12-19] MEDS ORDERED: ENOXAPARIN SODIUM 40 MG/0.4 ML SYR SC SCH (21:00)
[2024-12-19 22:19] LABS: C. DIFFICILE TOXIN A&B NEGATIVE (NEGATIVE)
[2024-12-19 22:54] VITALS: BP 94/39
[2024-12-20] VITALS (13 sets, daily range): BP systolic 90–124; BP diastolic 52–91
[2024-12-20 05:30] LABS: BASO% 0.1 % (0-3); HEMATOCRIT 23.2 % (39.0-50.0); HEMOGLOBIN 7.6 g/dl (14.0-18.0); IMMATURE GRANULOCYTES 0.8 % (0.0-5.0); LYMPH% 3.7 % (15-41); MEAN CELL VOLUME 81.1 fL CALC (80.0-100.0); MEAN CORPUSCULAR HGB 26.6 pG CALC (26.0-32.0); MEAN CORPUSCULAR HGB CONC 32.8 g/dL CAL (32.0-36.0); MONO% 8.3 % (2-13); NEUT# 9.24 thou/uL (1.82-7.42); NEUT% 87.1 % (42-76); RED BLOOD COUNT 2.86 mill/uL (4.70-6.10); RED CELL DISTRI WIDTH 16.4 % (11.5-15.5)
[2024-12-20 05:39] LABS: BILIRUBIN, TOTAL 1.1 mg/dL (0.2-1.3); CREATININE 1.2 mg/dL (0.7-1.3); MAGNESIUM 1.6 mg/dL (1.6-2.3); POTASSIUM 4.4 mmol/l (3.5-5.1); TOTAL PROTEIN 5.9 g/dL (6.3-8.2)
[2024-12-20 05:45] LABS: ALBUMIN 2.4 g/dL (3.2-5.0)
[2024-12-20] MEDS ORDERED: SODIUM CHLORIDE 0.9% 500 ML IV ONE (10:40)
[2024-12-20] MEDS ORDERED: HYDROcodone 5 MG/Acetaminophen 325 MG/COMBO PO PRN (10:45)
[2024-12-20] MEDS ORDERED: Pantoprazole Sodium 40 MG VIAL (Protonix) IV SCH (11:30)
[2024-12-20] MEDS ORDERED: VANCOMYCIN HCL 1,250 MG in SODIUM CHLORIDE 0.9% 225 ML IV SCH (13:00)
[2024-12-20] MEDS ORDERED: AZTREONAM 1 GM in SODIUM CHLORIDE 0.9% 50 ML IV SCH (14:00)
[2024-12-20] MEDS ORDERED: METHOCARBAMOL 500 MG/TAB PO PRN (15:15)
[2024-12-21 05:39] LABS: ALBUMIN 2.3 g/dL (3.2-5.0); BILIRUBIN, TOTAL 1.3 mg/dL (0.2-1.3); CREATININE 0.8 mg/dL (0.7-1.3); MAGNESIUM 1.7 mg/dL (1.6-2.3); POTASSIUM 4.3 mmol/l (3.5-5.1); TOTAL PROTEIN 5.6 g/dL (6.3-8.2)
[2024-12-21 05:49] LABS: BASO% 0.1 % (0-3); EOS% 0.1 % (0-8); IMMATURE GRANULOCYTES 0.4 % (0.0-5.0); MEAN CELL VOLUME 82.2 fL CALC (80.0-100.0); MEAN CORPUSCULAR HGB 27.6 pG CALC (26.0-32.0); MEAN CORPUSCULAR HGB CONC 33.6 g/dL CAL (32.0-36.0); MONO% 10.3 % (2-13); NEUT# 6.97 thou/uL (1.82-7.42); NEUT% 83.1 % (42-76); RED BLOOD COUNT 3.7 mill/uL (4.70-6.10); RED CELL DISTRI WIDTH 16.4 % (11.5-15.5)
[2024-12-21 05:50] LABS: HEMATOCRIT 30.4 % (39.0-50.0); HEMOGLOBIN 10.2 g/dl (14.0-18.0)
[2024-12-21 07:00] VITALS: BP 95/47
[2024-12-21 08:00] VITALS: BP 95/47
[2024-12-21] MEDS ORDERED: MORPHINE SULFATE 4 MG/ML VIAL IV PRN (11:45)
[2024-12-21] MEDS ORDERED: HYDROcodone/Acetaminophen 1 COMBO TAB PO PRN (11:45)
[2024-12-21 12:00] VITALS: BP 95/47
[2024-12-21 19:00] VITALS: BP 148/77
[2024-12-21 21:33] VITALS: BP 148/77
[2024-12-22] VITALS (7 sets, daily range): BP systolic 96–148; BP diastolic 49–77
[2024-12-22] MEDS ORDERED: SODIUM CHLORIDE 0.9% 0 ML IV ONE (00:22)
[2024-12-22] MEDS ORDERED: Zaleplon 5 MG/CAP PO SCH ×3 (01:39→22:08)
[2024-12-22 04:57] LABS: MEAN CELL VOLUME 80.8 fL CALC (80.0-100.0); MEAN CORPUSCULAR HGB 26.9 pG CALC (26.0-32.0); MEAN CORPUSCULAR HGB CONC 33.3 g/dL CAL (32.0-36.0); RED BLOOD COUNT 3.34 mill/uL (4.70-6.10); RED CELL DISTRI WIDTH 16.6 % (11.5-15.5)
[2024-12-22 05:05] LABS: PLATELET COUNT 45 thou/uL (130-400)
[2024-12-22 05:09] LABS: ALBUMIN 1.9 g/dL (3.2-5.0); BILIRUBIN, TOTAL 1.3 mg/dL (0.2-1.3); CREATININE 0.9 mg/dL (0.7-1.3); MAGNESIUM 1.6 mg/dL (1.6-2.3); POTASSIUM 4.1 mmol/l (3.5-5.1); TOTAL PROTEIN 5.1 g/dL (6.3-8.2)
[2024-12-22] MEDS ORDERED: methylPREDNISolone Sod Succ 40 MG/ML SDV IV SCH (08:45)
[2024-12-22] MEDS ORDERED: Levofloxacin 750 mg Premix 150 ML IV SCH (09:30)
[2024-12-22 09:52] LABS: MANUAL DIFFERENTIAL YES
[2024-12-22 09:55] LABS: BAND 11 % (0-8)
[2024-12-22] MEDS ORDERED: VANCOMYCIN HCL 1,500 MG in SODIUM CHLORIDE 0.9% 470 ML IV SCH (13:00)
[2024-12-22] MEDS ORDERED: PANTOPRAZOLE SODIUM Sesquihydr 40 MG/TAB PO SCH (21:00)
[2024-12-23] VITALS (7 sets, daily range): BP systolic 104–120; BP diastolic 64–82
[2024-12-23 05:18] LABS: ALBUMIN 1.8 g/dL (3.2-5.0); BILIRUBIN, TOTAL 1.2 mg/dL (0.2-1.3); CREATININE 0.8 mg/dL (0.7-1.3); MAGNESIUM 1.9 mg/dL (1.6-2.3); POTASSIUM 4.8 mmol/l (3.5-5.1); TOTAL PROTEIN 5.1 g/dL (6.3-8.2)
[2024-12-23 05:30] LABS: HEMATOCRIT 32.5 % (39.0-50.0); HEMOGLOBIN 10.5 g/dl (14.0-18.0); MEAN CELL VOLUME 81.3 fL CALC (80.0-100.0); MEAN CORPUSCULAR HGB 26.3 pG CALC (26.0-32.0); MEAN CORPUSCULAR HGB CONC 32.3 g/dL CAL (32.0-36.0)
[2024-12-23] MEDS ORDERED: INSULIN GLARGINE 100 UNITS/ML SC SCH (10:00)
[2024-12-23] MEDS ORDERED: methylPREDNISolone Sod Succ 40 MG/ML SDV IV SCH (18:00)
[2024-12-23] MEDS ORDERED: GADOPICLENOL (VUEWAY) 0.5 MM/ML 3.75MM/7.5ML VIAL IV ONE ×2 (20:35)
[2024-12-23] MEDS ORDERED: SODIUM CHLORIDE 0.9% 0 ML IV ONE (21:34)
[2024-12-24 00:41] VITALS: BP 120/82
[2024-12-24 04:47] LABS: BASO% 0.1 % (0-3); HEMATOCRIT 32.8 % (39.0-50.0); HEMOGLOBIN 11.2 g/dl (14.0-18.0); IMMATURE GRANULOCYTES 1.6 % (0.0-5.0); LYMPH% 13.7 % (15-41); MEAN CELL VOLUME 79.2 fL CALC (80.0-100.0); MEAN CORPUSCULAR HGB 27.1 pG CALC (26.0-32.0); MEAN CORPUSCULAR HGB CONC 34.1 g/dL CAL (32.0-36.0); MONO% 3.9 % (2-13); NEUT# 13.53 thou/uL (1.82-7.42); NEUT% 80.7 % (42-76); RED BLOOD COUNT 4.14 mill/uL (4.70-6.10)
[2024-12-24 05:19] LABS: BILIRUBIN, TOTAL 1.3 mg/dL (0.2-1.3); CREATININE 0.9 mg/dL (0.7-1.3); POTASSIUM 4.6 mmol/l (3.5-5.1); TOTAL PROTEIN 5.8 g/dL (6.3-8.2)
[2024-12-24 05:30] LABS: ALBUMIN 2.2 g/dL (3.2-5.0)
[2024-12-24 05:54] VITALS: BP 106/66
[2024-12-24 05:59] VITALS: BP 120/82
[2024-12-24 10:35] VITALS: BP 136/83
[2024-12-24 15:32] VITALS: BP 112/75
[2024-12-24 17:41] VITALS: BP 112/75
[2024-12-25] MEDS ORDERED: INSULIN GLARGINE 100 UNITS/ML SC SCH (09:00)
== END 2024-12-24 19:10 | disposition short-term general hospital (02) | DRG 871 ==
LOC: ED 15:53 → ED-I 17:31 → ED 17:58 → MS2 17:59
PROVIDERS: Emergency Medicine; Nurse Practitioner Family; ADMIT Internal Medicine; ATTEND Internal Medicine
PROC: 30233N1 Transfusion of Nonautologous Red Blood Cells into Peripheral Vein, Percutaneous Approach (ICD-10-PCS; principal; 2024-12-20)
PROC: 30233N1 Transfusion of Nonautologous Red Blood Cells into Peripheral Vein, Percutaneous Approach (ICD-10-PCS; 2024-12-20)
DX: A41.01 Sepsis due to Methicillin susceptible Staphylococcus aureus (principal); I33.0 Acute and subacute infective endocarditis; M62.82 Rhabdomyolysis; E87.1 Hypo-osmolality and hyponatremia; L03.115 Cellulitis of right lower limb; M86.671 Other chronic osteomyelitis, right ankle and foot; E11.69 Type 2 diabetes mellitus with other specified complication; D69.59 Other secondary thrombocytopenia; D64.9 Anemia, unspecified; E86.0 Dehydration; E11.628 Type 2 diabetes mellitus with other skin complications; I10 Essential (primary) hypertension; E11.610 Type 2 diabetes mellitus with diabetic neuropathic arthropathy; E11.40 Type 2 diabetes mellitus with diabetic neuropathy, unspecified; R90.89 Other abnormal findings on diagnostic imaging of central nervous system; Z79.84 Long term (current) use of oral hypoglycemic drugs; Z87.891 Personal history of nicotine dependence; Z98.890 Other specified postprocedural states
CPT/HCPCS: A9579; J0457; J0878; J1650; J1815; J2470; J3370; P9016